=== PATIENT | male | born 1980 | race Two or more races ===

== ENCOUNTER 2020-02-07 14:25 | Outpatient (REF) | payer OTHER, SELFPAY | END 2020-02-07 14:26 | disposition home or self-care (01) | LOC: HO.LNP 14:25 | PROVIDERS: Visit Provider Internal Medicine | DX: Z20.828 Contact with and (suspected) exposure to other viral communicable diseases (principal) | CPT/HCPCS: U0003 ==

== ENCOUNTER 2020-06-11 14:31 | Outpatient (REF) | payer OTHER, SELFPAY ==
[2020-06-11 15:16] LABS: Influenza A PCR NEGATIVE (Negative); Influenza B PCR NEGATIVE (Negative); Resp Syncy Virus RNA Qual PCR NEGATIVE (Negative); SARS COV2 PCR INHOUSE NEGATIVE (Negative)
== END 2020-06-11 14:32 | disposition home or self-care (01) ==
LOC: HO.LNP 14:31
PROVIDERS: Visit Provider Internal Medicine
DX: Z20.822 Contact with and (suspected) exposure to COVID-19 (principal)
CPT/HCPCS: 0241U

== ENCOUNTER 2020-07-25 21:27 | Emergency (ER) | payer OTHER, SELFPAY ==
[2020-07-25 21:48] VITALS: BP 161/86; PULSE 64; RESP 16; TEMP 36.9; O2SAT 99; BMI 33.0
--- NOTE | 2020-07-26 00:14 | ED.GENADULT ---
HPI - General Adult General Chief complaint: General Medical Stated complaint: Left knee injury/at work Time Seen by Provider: 07/26/20 00:12 Source: patient Mode of arrival: ambulatory Limitations: no limitations History of Present Illness HPI narrative: Patient comes emergency room complaining of left knee pain. Patient states that he banged his knee at work, initially the patellar aspect hurt but it quickly resolved. Patient states the only reason that he came to the emergency room is because his boss asked him to come to get checked. Patient states that this moment, he no longer has any pain at all, has full range of motion, no swelling, no ecchymosis. Patient did not take any pain medication prior to arrival Related Data Allergies Allergy/AdvReac Type Severity Reaction Status Date / Time pistachio nut [PISTACHIO] Allergy Unknown UNKNOWN Unverified 11/23/19 17:36 oxycodone [OXYCODONE] AdvReac Intermediate NAUSEA/VOMI Unverified 11/23/19 17:36 TING Review of Systems Review of Systems: Constitutional : No Weight loss, No Fever, No Chills, No Night Sweats, No Fatigue, No Malaise ENT/Mouth : No Hearing loss, No Ear Pain, No Nasal Congestion, No Sinus Pain, No Hoarseness, No sore throat, No Rhinorrhea, No Swallowing Difficulty Eyes: No Eye Pain, No Swelling, No Redness, No Foreign Body, No Discharge, No Vision Changes Cardiovascular : No Chest Pain, No SOB, No Dyspnea on Exertion, No Orthopnea, No Edema, No Palpitations Respiratory : No Cough, No Sputum, No Wheezing, No Smoke Exposure, No Dyspnea Gastrointestinal : No Nausea, No Vomiting, No Diarrhea, No Constipation, No abdominal Pain, No Hematochezia, No Melena Genitourinary : no irregular bleeding, No Dysuria, No Urinary Frequency, No Hematuria, No Urinary Incontinence, No Urgency, No Flank Pain, No Urinary Flow Changes, No Hesitancy Musculoskeletal : Left knee pain now resolved, No Myalgias, No Joint Swelling Skin : No Skin Lesions, No rash Neuro : No Weakness, No Numbness, No Paresthesias, No Loss of Consciousness, No Dizziness, No Headache Psych : No Anxiety/Panic, No Depression, No SI/HI/AH/VH, No Social Issues, Heme/Lymph: No Bruising, No Bleeding,No Lymphadenopathy Endocrine : No Polyuria, No Polydipsia, No Temperature Intolerance Physical Exam Vital Signs: Vital Signs: Last Vital Signs Temp 98.4 F 07/25/20 21:48 Pulse 64 07/25/20 21:48 Resp 16 07/25/20 21:48 BP 161/86 H 07/25/20 21:48 Pulse Ox 99 07/25/20 21:48 Body Mass Index 33.0 Constitutional : No Weight loss, No Fever, No Chills, No Night Sweats, No Fatigue, No Malaise ENT/Mouth : No Hearing loss, No Ear Pain, No Nasal Congestion, No Sinus Pain, No Hoarseness, No sore throat, No Rhinorrhea, No Swallowing Difficulty Eyes: No Eye Pain, No Swelling, No Redness, No Foreign Body, No Discharge, No Vision Changes Cardiovascular : No Chest Pain, No SOB, No Dyspnea on Exertion, No Orthopnea, No Edema, No Palpitations Respiratory : No Cough, No Sputum, No Wheezing, No Smoke Exposure, No Dyspnea Gastrointestinal : No Nausea, No Vomiting, No Diarrhea, No Constipation, No abdominal Pain, No Hematochezia, No Melena Genitourinary : no irregular bleeding, No Dysuria, No Urinary Frequency, No Hematuria, No Urinary Incontinence, No Urgency, No Flank Pain, No Urinary Flow Changes, No Hesitancy Musculoskeletal : No joint pain, bilateral patellas within normal limits, no effusions, no ecchymosis, range of motion within normal limits, patient ambulatory with steady gait, no limping Skin : No Skin Lesions, No rash Neuro : No Weakness, No Numbness, No Paresthesias, No Loss of Consciousness, No Dizziness, No Headache Psych : No Anxiety/Panic, No Depression, No SI/HI/AH/VH, No Social Issues, Heme/Lymph: No Bruising, No Bleeding,No Lymphadenopathy Endocrine : No Polyuria, No Polydipsia, No Temperature Intolerance Course Course Course Narrative: Patient is asymptomatic now, has no signs of injury. At this time imaging is not recommended Discharge Plan Discharge Clinical Impression: Acute knee pain Patient Disposition: Home, Self-Care Instructions: Knee Pain (ED) Additional Instructions: Please follow-up with your primary care physician tomorrow. If you have any worsening or new symptoms, please return to the emergency room or call 911
== END 2020-07-26 01:00 | disposition home or self-care (01) ==
PROVIDERS: Emergency Provider Emergency Medicine; PCP Internal Medicine
DX: S89.92XA Unspecified injury of left lower leg, initial encounter (principal); M25.562 Pain in left knee; Y29.XXXA Contact with blunt object, undetermined intent, initial encounter; Y93.9 Activity, unspecified; Y92.9 Unspecified place or not applicable; Y99.0 Civilian activity done for income or pay
CPT/HCPCS: 99282

== ENCOUNTER 2020-08-26 15:50 | Emergency (ER) | payer OTHER, SELFPAY ==
--- NOTE | ~2020-08-26 | XR_ITS ---
EXAMINATION: XR ANKLE, RIGHT CLINICAL INFORMATION: Rolled ankle and felt a pop COMPARISON: None TECHNIQUE: AP, lateral, and mortise views of the right ankle. FINDINGS: There is mild lateral malleolar soft tissue swelling. The ankle mortise and subtalar joints are normal. No visible acute fracture, dislocation or subluxation seen. There is a small calcaneal heel and retrocalcaneal enthesophyte. The soft tissues are normal. XR/XR ankle RT min 3V IMPRESSION: Small calcaneal heel and retrocalcaneal enthesophyte.
[2020-08-26 15:51] VITALS: BP 143/78; PULSE 89; RESP 18; TEMP 36.8; O2SAT 99; BMI 31.8
--- NOTE | 2020-08-26 16:32 | ED.LOWEXIN ---
HPI - Extremity Injury (Lower) General Chief Complaint: Extremity Injury, Lower Stated Complaint: Ankle pain Time Seen by Provider: 08/26/20 16:32 Source: patient Mode of arrival: ambulatory History of Present Illness HPI Narrative: 40-year-old male with no significant past medical history presenting to the ED complaining right ankle pain s/p rolling injury yesterday and feeling a pop while fixing a car. Has been ambulatory since the incident. Denies numbness, tingling, weakness. complaint: ankle injury Related Data Previous Rx's Medication Instructions Recorded acetaminophen [Tylenol Extra 500 mg PO Q6H PRN #20 tab 08/26/20 Strength] ibuprofen 800 mg PO Q8H PRN #14 tab 08/26/20 Allergies Allergy/AdvReac Type Severity Reaction Status Date / Time pistachio nut [PISTACHIO] Allergy Unknown UNKNOWN Unverified 11/23/19 17:36 oxycodone [OXYCODONE] AdvReac Intermediate NAUSEA/VOMI Unverified 11/23/19 17:36 TING Review of Systems Review of Systems: Constitutional: No Fever, No Chills Musculoskeletal: + joint pain, No Myalgias, + Joint Swelling Skin: No Skin Lesions, No rash Neuro: No Weakness, No Numbness, No Paresthesias Yes all other systems are reviewed and are negative Neurologic: Denies Sensory deficit (Neuro) [facility] Past Medical History Attestation statement: The following information was validated with the patient. Social History Social History Advance Directives: No Advance Directives Information Provided: No Physical Exam Vital Signs: Vital Signs: Last Vital Signs Temp 98.2 F 08/26/20 15:51 Pulse 89 08/26/20 15:51 Resp 18 08/26/20 15:51 BP 143/78 H 08/26/20 15:51 Pulse Ox 99 08/26/20 15:51 Body Mass Index 31.8 Const: General: cooperative and healthy appearing Orientation/consciousness: patient oriented x3 Limitations: no limitations HENMT: Head: Yes normal to inspection Ears: hearing grossly normal bilaterally General nose exam: Normal external nose present Face and sinus: Yes normal facial exam Eyes: General: appearance normal, both eyes and all related structures EOM: EOMs intact bilaterally Neck: Neck: Yes normal visual inspection Resp: Effort & Inspection: normal respiratory effort Cardio: Rate: regular rate Peripheral pulses: dorsalis pedis present Skin: Rashes: no rashes Wounds: no wounds Neuro: General: patient oriented x3 Gait exam (Neuro): Normal gait present Motor exam (neuro): 5/5 motor strength present throughout Sensory Exam: No Sensory deficit (Neuro) Extrem: Other: Right ankle with mild swelling greater at medial aspect. Tender to palpation. Foot nontender. Neurovascularly intact distally. Full range of motion intact to foot/ankle Course Course Course Narrative: XR ankle RT min 3V IMPRESSION: Small calcaneal heel and retrocalcaneal enthesophyte. >> air cast applied for stability. Patient declined crutches MDM - Extremity Injury (Lower) MDM Narrative Medical decision making narrative: 40-year-old male with no significant past medical history presenting to the ED complaining right ankle pain s/p rolling injury yesterday and feeling a pop while fixing a car. On exam vital signs stable, NAD, well-appearing, physical exam as above. Concern for sprain versus fracture or dislocation Plan: X-rays Lab Data Attestation: I reviewed the patient's lab results. Discharge Plan Discharge Clinical Impression: Ankle sprain and strain Patient Disposition: Home, Self-Care Instructions: Ankle Sprain (ED) Additional Instructions: Your x-rays did not show any fracture/break of her ankle, you have an ankle sprain Wear Aircast at home as needed for stability/comfort Avoid excessive walking/weight-bearing or exercise to your ankle/foot Ice, elevate, take ibuprofen and Tylenol around the clock for the next few days to help with swelling/pain Follow-up with your primary care doctor Prescriptions: New ibuprofen 800 mg tablet 800 mg PO Q8H PRN (Reason: pain) Qty: 14 RF: 0 acetaminophen [Tylenol Extra Strength] 500 mg tablet 500 mg PO Q6H PRN (Reason: pain or fever) Qty: 20 RF: 0 Referrals: Herve Hernandez MD [Primary Care Provider] - 1 week
== END 2020-08-26 16:47 | disposition home or self-care (01) ==
PROVIDERS: Emergency Provider Emergency Medicine; PCP Internal Medicine
DX: S93.401A Sprain of unspecified ligament of right ankle, initial encounter (principal); S96.911A Strain of unspecified muscle and tendon at ankle and foot level, right foot, initial encounter; X50.1XXA Overexertion from prolonged static or awkward postures, initial encounter; Y93.89 Activity, other specified; Y92.9 Unspecified place or not applicable; Y99.9 Unspecified external cause status
CPT/HCPCS: 73610; 99283; 99284

== ENCOUNTER 2020-10-09 12:21 | Outpatient (REF) | payer OTHER, SELFPAY | END 2020-10-09 12:22 | disposition home or self-care (01) | LOC: HO.LAB 12:21 | PROVIDERS: PCP Internal Medicine; Visit Provider Internal Medicine | DX: Z20.822 Contact with and (suspected) exposure to COVID-19 (principal) | CPT/HCPCS: C9803; U0003; U0005 ==

== ENCOUNTER 2020-11-22 09:29 | Outpatient (REF) | payer OTHER, SELFPAY | END 2020-11-22 09:30 | disposition home or self-care (01) | LOC: HO.LAB 09:29 | PROVIDERS: Visit Provider Internal Medicine | DX: Z20.822 Contact with and (suspected) exposure to COVID-19 (principal) | CPT/HCPCS: C9803; U0003; U0005 ==

== ENCOUNTER 2020-11-28 21:34 | Emergency (ER) | payer OTHER, SELFPAY ==
[2020-11-28 21:43] VITALS: BP 114/70; BP 167/87; PULSE 68; PULSE 70; RESP 18; TEMP 36.9; O2SAT 98; O2SAT 99; BMI 31.8
--- NOTE | 2020-11-28 22:27 | ECG_ITS ---
Test Reason : CHEST PAIN Blood Pressure : / mmHG Vent. Rate : 061 BPM Atrial Rate : 061 BPM P-R Int : 158 ms QRS Dur : 100 ms QT Int : 428 ms P-R-T Axes : 036 042 027 degrees QTc Int : 430 ms Normal sinus rhythm Minimal voltage criteria for LVH, may be normal variant Borderline ECG When compared with ECG of 11-JAN-2013 10:45, No significant change was found Referred By: Generic ED Physician Electronically Signed By:JEIMY CHAPMAN
[2020-11-28 22:44] VITALS: BP 148/82; PULSE 65; RESP 12; O2SAT 98
--- NOTE | 2020-11-28 23:49 | ED.CHESTPAIN ---
HPI - Chest Pain General Chief Complaint: Chest Pain Stated Complaint: rt chest pain Time Seen by Provider: 11/28/20 23:49 Source: patient Mode of arrival: ambulatory Limitations: no limitations History of Present Illness HPI narrative: chest pain with shortness of breath. Pain started today at 6:30pm patient was getting ready to go to work. No prior history of chest pain. patient states that he has stress. Denies suicidal ideation MD complaint: chest pain Onset (ago): hour(s) Timing of current episode: constant Onset: during rest Pain location: left chest Severity: mild Quality: other (cramping) Exacerbating factors: nothing Risk Factors Coronary artery disease risk factors: none Related Data Previous Rx's Medication Instructions Recorded acetaminophen 500 mg tablet 500 mg PO Q6H PRN #20 tab 08/26/20 (Tylenol Extra Strength) ibuprofen 800 mg tablet 800 mg PO Q8H PRN #14 tab 08/26/20 Allergies Allergy/AdvReac Type Severity Reaction Status Date / Time pistachio nut [PISTACHIO] Allergy Unknown UNKNOWN Unverified 11/23/19 17:36 oxycodone [OXYCODONE] AdvReac Intermediate NAUSEA/VOMI Unverified 11/23/19 17:36 TING Review of Systems Constitutional: Constitutional: Reports no additional constitutional complaints Eyes: Eyes: Reports no additional eye complaints ENT: Denies dizziness Cardiovascular: Cardiovascular: Reports no additional cardiovascular complaints Respiratory: Respiratory: Reports as per HPI Gastrointestinal: Gastrointestinal: Reports no additional gastrointestinal complaints Musculoskeletal: Musculoskeletal: Reports no additional musculoskeletal complaints Integumentary/Breasts: Skin/Breast: Denies rash Neurologic: Reports system reviewed and no additional complaints, except as documented, Denies dizziness and Denies Sensory deficit (Neuro) Psychiatric: Psychiatric: Denies anxiety [facility] Social History Social History Advance Directives: No Advance Directives Information Provided: Yes Physical Exam Vital Signs: Vital Signs: Last Vital Signs Temp 98.4 F 11/28/20 21:43 Pulse 60 11/29/20 00:01 Resp 12 11/29/20 00:01 BP 135/81 11/29/20 00:01 Pulse Ox 98 11/29/20 00:01 Body Mass Index 31.8 Const: General: healthy appearing Nutritional Appearance: average body habitus Orientation/consciousness: oriented to person and patient oriented x3 Limitations: no limitations HENMT: Head: Yes normal to inspection Ears: external ears normal General nose exam: Normal external nose present Mouth: Normal oral and palatal mucosa present and oropharynx normal Throat: Yes posterior oropharynx normal Eyes: General: appearance normal, both eyes and all related structures Neck: Other: supple Neck: Yes normal visual inspection Chest: Chest palpation & inspection: normal inspection of the chest Resp: Auscultation: clear to auscultation bilaterally Cardio: Jugular venous distension: no JVD Rate: regular rate Rhythm: regular rhythm Heart sounds: S1 normal heart sound present and S2 normal heart sound present GI: Inspection: Yes normal to inspection Palpation (GI): Soft to palpation, nontender and No hepatosplenomegaly present Auscultation: normal bowel sounds : General: Yes no CVA tenderness Back/Spine/Pelvis: Back: no CVA tenderness Skin: General skin exam: no rashes or lesions noted Neuro: General: oriented to person and patient oriented x3 Cranial nerves: Yes CN's II-XII intact bilaterally Motor exam (neuro): 5/5 motor strength present throughout Sensory Exam: No Sensory deficit (Neuro) Extrem: General: Yes normal to inspection Psych: Appearance: grossly normal Course Reevaluation(s) Reevaluation #1: labs normal, history sounds more like anxiety then cardiac chest pain will dc home Time: 01:12 MDM - Chest Pain Lab Data Result diagrams: 11/29/20 00:11 11/29/20 00:11 Labs: Lab Results 11/29/20 11/29/20 11/29/20 Range/Units 00:11 00:11 00:11 WBC 7.7 (4.8-10.8) X10*3/uL RBC 5.01 (4.60-5.80) X10*6/uL Hgb 14.0 (14.0-18.0) g/dl Hct 40.3 L (42-52) % MCV 80.4 (80-98) fL MCH 27.9 (27.0-33.0) pg MCHC 34.7 (31.0-36.0) g/dl RDW 13.5 (11.0-16.0) % Plt Count 218 (160-400) X10*3/uL MPV 9.6 (9.4-12.4) fL Immature Gran % (Auto) 0.3 (0.0-0.4) % Neut % (Auto) 56.3 (45-73) % Lymph % (Auto) 35.3 (20-40) % [place] % (Auto) 6.2 (2-11) % Eos % (Auto) 1.6 (0-4) % Baso % (Auto) 0.3 (0-2) % Lymph # (Auto) 2.7 (1.2-4.9) X10*3/uL [place] # (Auto) 0.5 (0.1-1.2) X10*3/uL Eos # (Auto) 0.1 (0.0-0.4) X10*3/uL Baso # (Auto) 0.0 (0.0-0.2) X10*3/uL Abs Immat Gran (auto) 0.02 (0.00-0.03) X10*3/uL Absolute Neuts (auto) 4.4 (2.0-8.3) X10*3/uL Absolute Nucleated RBC 0.000 (0.0-0.012) X10*3/uL Nucleated RBC % (auto) 0.0 (0.0-0.2) /100WBC Sodium 139 (135-145) mmol/L Potassium 3.7 (3.3-5.1) mmol/L Chloride 108 (96-108) mmol/L Carbon Dioxide 23 (22-29) mmol/L Anion Gap 12 (12-20) BUN 8 L (9-16) mg/dL Creatinine 0.71 (0.5-1.4) mg/dL Estim Creat Clear Calc 125.8 Estimated GFR > 60 Random Glucose 113 (60-115) mg/dL Calcium 8.9 (8.4-10.2) mg/dL Troponin I High Sens 4.4 (<3.5-35.0) ng/L ECG Data ECG #1: Attestation: I personally reviewed and interpreted this ECG as follows: Interpretation: sinus rhythm rate of 60, biphasic ts in V1 and V2, no other twave changes Discharge Plan Discharge Clinical Impression: Atypical chest pain Patient Disposition: Home, Self-Care Instructions: Noncardiac Chest Pain (ED) Prescriptions: No Action ibuprofen 800 mg tablet 800 mg PO Q8H PRN (Reason: pain) Qty: 14 RF: 0 acetaminophen [Tylenol Extra Strength] 500 mg tablet 500 mg PO Q6H PRN (Reason: pain or fever) Qty: 20 RF: 0 Referrals: Physician,Unknown [Primary Care Provider] - 1 week
[2020-11-29 00:01] VITALS: BP 135/81; PULSE 60; RESP 12; O2SAT 98
--- NOTE | 2020-11-29 00:13 | PC.NURSE ---
Labs drawn. PT's VSS. PT resting in bed. No complaints of chest pain and respirations even and unlabored.
[2020-11-29 00:21] LABS: Basophils Percent Auto 0.3 % (0-2); Eosinophils Absolute Auto 0.1 X10*3/uL (0.0-0.4); Eosinophils Percent Auto 1.6 % (0-4); Hematocrit 40.3 % (42-52); Imm Gran Abs Auto 0.02 X10*3/uL (0.00-0.03); Imm Gran Pct Auto 0.3 % (0.0-0.4); Lymphocytes Absolute Auto 2.7 X10*3/uL (1.2-4.9); Lymphocytes Percent Auto 35.3 % (20-40); MANUAL DIFF FLAG NO; Mean Corpuscular HGB Conc 34.7 g/dl (31.0-36.0); Mean Corpuscular Hemoglobin 27.9 pg (27.0-33.0); Mean Corpuscular Volume 80.4 fL (80-98); Mean Platelet Volume 9.6 fL (9.4-12.4); Monocytes Absolute Auto 0.5 X10*3/uL (0.1-1.2); Monocytes Percent Auto 6.2 % (2-11); Neutrophils Absolute Auto 4.4 X10*3/uL (2.0-8.3); Neutrophils Percent Auto 56.3 % (45-73); Platelet Count 218 X10*3/uL (160-400); Red Blood Count 5.01 X10*6/uL (4.60-5.80); Red Cell Distribution Width 13.5 % (11.0-16.0); White Blood Count 7.7 X10*3/uL (4.8-10.8)
[2020-11-29 00:45] LABS: Anion Gap 12 (12-20); Blood Urea Nitrogen 8 mg/dL (9-16); Calcium 8.9 mg/dL (8.4-10.2); Carbon Dioxide 23 mmol/L (22-29); Chloride 108 mmol/L (96-108); Creatinine Clr Calc Pharmacy 125.8; Estimated Glomerular Filt Rate > 60; Glucose Random 113 mg/dL (60-115); Potassium 3.7 mmol/L (3.3-5.1); Sodium 139 mmol/L (135-145)
[2020-11-29 00:50] LABS: Troponin-I High Sensitivity 4.4 ng/L (<3.5-35.0)
== END 2020-11-29 01:41 | disposition home or self-care (01) ==
PROVIDERS: Emergency Provider Emergency Medicine
DX: R07.9 Chest pain, unspecified (principal); F43.9 Reaction to severe stress, unspecified; Z79.899 Other long term (current) drug therapy
CPT/HCPCS: 36415; 80048; 84484; 85025; 93005; 99284

== ENCOUNTER 2021-01-16 15:03 | Outpatient (REF) | payer OTHER, SELFPAY ==
[2021-01-16 15:34] LABS: COVID-19 Test Negative (Negative)
== END 2021-01-16 15:04 | disposition home or self-care (01) ==
LOC: HO.LAB 15:03
PROVIDERS: PCP Internal Medicine; Visit Provider Internal Medicine
DX: Z20.822 Contact with and (suspected) exposure to COVID-19 (principal)
CPT/HCPCS: 36415; 87635; C9803

== ENCOUNTER 2021-03-03 10:28 | Emergency (ER) | payer OTHER, SELFPAY ==
[2021-03-03 11:20] VITALS: BP 142/81; PULSE 68; RESP 18; TEMP 36.6; O2SAT 99; BMI 32.1
== END 2021-03-03 14:42 | disposition left against medical advice (07) ==
PROVIDERS: Emergency Provider Emergency Medicine; PCP Internal Medicine
DX: R06.02 Shortness of breath (principal); R05.9 Cough, unspecified
CPT/HCPCS: 99281; 99282

== ENCOUNTER 2021-03-04 12:29 | Outpatient (REF) | payer OTHER, SELFPAY ==
[2021-03-05 07:45] LABS: COVID-19 Test Negative (Negative)
== END 2021-03-04 12:30 | disposition home or self-care (01) ==
LOC: HO.LAB 12:29
PROVIDERS: Visit Provider Internal Medicine
DX: Z20.822 Contact with and (suspected) exposure to COVID-19 (principal)
CPT/HCPCS: 36415; 87635; C9803

== ENCOUNTER 2021-03-05 23:11 | Emergency (ER) | payer OTHER, SELFPAY ==
[2021-03-05 23:45] VITALS: BP 156/89; PULSE 78; RESP 16; TEMP 36.8; O2SAT 99; BMI 31.8
[2021-03-06 01:23] LABS: COVID-19 Test Negative (Negative)
--- NOTE | 2021-03-06 03:51 | ED.GENADULT ---
HPI - General Adult General Chief complaint: Upper Respiratory Symptoms Stated complaint: COVID Symptoms Time Seen by Provider: 03/06/21 03:51 Source: patient Limitations: no limitations History of Present Illness HPI narrative: This is a 40-year-old male whose daughter last week and had coded, who complains of mild headache, and throat discomfort. He has had a mild cough. He has also had some dry heaving yesterday as well as 3 episodes of diarrhea. Denies any fever. He had a negative COVID test here 2 days ago. He denies abdominal pain, has had some muscular discomfort in his legs. He denies shortness of breath. Related Data Previous Rx's Medication Instructions Recorded acetaminophen 500 mg tablet 500 mg PO Q6H PRN #20 tab 08/26/20 (Tylenol Extra Strength) ibuprofen 800 mg tablet 800 mg PO Q8H PRN #14 tab 08/26/20 Allergies Allergy/AdvReac Type Severity Reaction Status Date / Time pistachio nut [PISTACHIO] Allergy Unknown UNKNOWN Verified 03/05/21 23:47 oxycodone [OXYCODONE] AdvReac Intermediate NAUSEA/VOMI Verified 03/05/21 23:47 TING Review of Systems Constitutional: Constitutional: Reports as per HPI ENT: Reports as per HPI Cardiovascular: Cardiovascular: Denies dyspnea Respiratory: Respiratory: Reports as per HPI, Reports cough and Denies dyspnea Gastrointestinal: Gastrointestinal: Reports diarrhea, Reports nausea and Reports vomiting Neurologic: Denies Sensory deficit (Neuro) [facility] Past Medical History Medical History (Updated 03/06/21 @ 03:55 by Jere Estrada MD) No pertinent past medical history Social History Social History Advance Directives: No Advance Directives Information Provided: Yes Physical Exam Vital Signs: Vital Signs: Last Vital Signs Temp 98.3 F 03/05/21 23:45 Pulse 78 03/05/21 23:45 Resp 16 03/05/21 23:45 BP 156/89 H 03/05/21 23:45 Pulse Ox 99 03/05/21 23:45 BMI result Body Mass Index 31.8 Const: General: cooperative, no acute distress and alert Orientation/consciousness: patient oriented x3 HENMT: Head: Yes normal to inspection Eyes: General: appearance normal, both eyes and all related structures Eyelids: Yes eyelids normal Conjunctivae: conjunctivae normal Pupils: Equal, round and reactive pupils present Neck: Neck: Yes normal visual inspection and Yes supple Chest: Chest palpation & inspection: normal inspection of the chest Resp: Effort & Inspection: normal respiratory effort Auscultation: clear to auscultation bilaterally Cardio: Rate: regular rate Rhythm: regular rhythm Heart sounds: S1 normal heart sound present, S2 normal heart sound present, no gallops, no murmurs and no rubs GI: Palpation (GI): Soft to palpation, nontender and Other GI palpation findings present (Non-distended) Auscultation: normal bowel sounds Skin: General skin exam: no rashes or lesions noted Neuro: General: patient oriented x3, no focal motor deficits and CN's II-XI intact bilaterally Cranial nerves: Yes Equal, round and reactive pupils present Cognition (Neuro): normal cognition Motor exam (neuro): 5/5 motor strength present throughout Sensory Exam: No Sensory deficit (Neuro) Extrem: General: Yes normal to inspection and Yes no pedal edema Psych: Appearance: grossly normal Affect: normal affect Medical Decision Making MDM Narrative Medical decision making narrative: Patient with mild URI symptoms as well as some GI symptoms and a mild headache for few days. Patient did have recent COVID exposure. Patient had negative COVID test 2 days ago and again tonight was negative. Patient appears well clinically, has a normal exam, normal-appearing throat. Lab Data Labs: Lab Results 03/06/21 Range/Units 00:54 COVID-19 ([facility]) Negative (Negative) COVID-19 Clin Com See Note Discharge Plan Discharge Clinical Impression: Upper respiratory infection Patient Disposition: Home, Self-Care Instructions: Viral Syndrome (ED) Additional Instructions: Drink plenty of fluids. Use acetaminophen for pain or fever. Return for any new or worsened symptoms such as high fever, shortness of breath, increased cough Prescriptions: No Action ibuprofen 800 mg tablet 800 mg PO Q8H PRN (Reason: pain) Qty: 14 RF: 0 acetaminophen [Tylenol Extra Strength] 500 mg tablet 500 mg PO Q6H PRN (Reason: pain or fever) Qty: 20 RF: 0
== END 2021-03-06 04:32 | disposition home or self-care (01) ==
PROVIDERS: Emergency Provider Emergency Medicine
DX: J06.9 Acute upper respiratory infection, unspecified (principal); Z20.822 Contact with and (suspected) exposure to COVID-19; Z79.899 Other long term (current) drug therapy
CPT/HCPCS: 36415; 87635; 99283

== ENCOUNTER 2021-03-19 14:13 | Emergency (ER) | payer OTHER, SELFPAY ==
[2021-03-19 14:24] VITALS: BP 164/96; PULSE 112; RESP 20; TEMP 38.3; O2SAT 98; BMI 31.8
[2021-03-19 16:02] LABS: COVID-19 Test Positive (Negative); IDNOW Serial# 9DD0AD1C
--- NOTE | 2021-03-19 17:25 | ED_ITS ---
HPI - General Adult General Chief complaint: Upper Respiratory Symptoms Stated complaint: headache fever diarrhea Source: patient Mode of arrival: ambulatory Limitations: no limitations History of Present Illness HPI narrative: 40-year-old male presents to ED with body aches, chills, and fever. Patient states he was exposed to a co-worker positive for COVID. Patient states he is not vaccinated against COVID. Patient denies any chest pain or shortness of breath. Related Data Previous Rx's Medication Instructions Recorded acetaminophen 500 mg tablet 500 mg PO Q6H PRN #20 tab 08/26/20 (Tylenol Extra Strength) ibuprofen 800 mg tablet 800 mg PO Q8H PRN #14 tab 08/26/20 Allergies Allergy/AdvReac Type Severity Reaction Status Date / Time pistachio nut [PISTACHIO] Allergy Unknown UNKNOWN Verified 03/05/21 23:47 oxycodone [OXYCODONE] AdvReac Intermediate NAUSEA/VOMI Verified 03/05/21 23:47 TING Review of Systems Review of Systems: Headache, fever, diarrhea, chills, COVID exposure Yes all other systems are reviewed and are negative PENDING SALE TO [facility] Past Medical History Medical History (Updated 03/19/21 @ 17:39 by VELMA Eddy) No pertinent past medical history Social History Social History Advance Directives: No Advance Directives Information Provided: No Physical Exam Vital Signs: Vital Signs: Last Vital Signs Temp 100.9 F H 03/19/21 14:24 Pulse 112 H 03/19/21 14:24 Resp 20 03/19/21 14:24 BP 164/96 H 03/19/21 14:24 Pulse Ox 98 03/19/21 14:24 BMI result Body Mass Index 31.8 Const: General: cooperative, healthy appearing, comfortable, no acute distress, well developed, alert, awake and Physically active Orientation/consciousness: patient oriented x3 HENMT: Head: Yes normal to inspection, Yes No palpable skull fracture present, Yes normocephalic and Yes atraumatic Ears: hearing grossly normal bilaterally, external ears normal, TM's normal bilaterally, EAC's normal and mastoids normal Throat: Yes posterior oropharynx normal, Yes tonsils normal and Yes uvula midline Eyes: General: appearance normal, both eyes and all related structures Neck: Neck: Yes normal visual inspection, Yes full ROM, Yes no lymphadenopathy, Yes no meningeal signs, Yes trachea midline, Yes supple, No anterior neck swelling and No tender Chest: Chest palpation & inspection: normal inspection of the chest and normal palpation of entire chest wall Resp: Effort & Inspection: normal respiratory effort and able to speak in complete sentences Auscultation: clear to auscultation bilaterally Cardio: Jugular venous distension: no JVD Heart sounds: S1 normal heart sound present and S2 normal heart sound present GI: Inspection: Yes normal to inspection and No abdominal wall ecchymosis Palpation (GI): Soft to palpation, not firm, nontender, no guarding and not rigid : General: No CVA tenderness and Yes no CVA tenderness Back/Spine/Pelvis: Back: no CVA tenderness, No CVA tenderness and No back tenderness Skin: General skin exam: no rashes or lesions noted and elasticity normal Neuro: General: patient oriented x3, gait normal, no meningeal signs and CN's II-XI intact bilaterally Cranial nerves: Yes CN's II-XII intact bilaterally Extrem: General: Yes normal to inspection and Yes full ROM Psych: Appearance: grossly normal, well kempt and not disheveled Course Course Course Narrative: COVID Test ordered Reevaluation(s) Reevaluation #1: Patient positive for COVID Time: 17:34 Medical Decision Making [facility] Narrative Medical decision making narrative: Covid Lab Data Labs: Lab Results 03/19/21 Range/Units 15:45 COVID-19 ([facility]) Positive A (Negative) COVID-19 Clin Com See Note Discharge Plan Discharge Clinical Impression: COVID-19 Patient Disposition: Home, Self-Care Instructions: COVID-19 (Coronavirus Disease 2019) (ED) Additional Instructions: You came back positive for COVID. Recommend self-quarantine. Return to the ED for any chest pain, shortness of breath, weakness, dizziness, or any other concerning symptoms. Prescriptions: No Action ibuprofen 800 mg tablet 800 mg PO Q8H PRN (Reason: pain) Qty: 14 RF: 0 acetaminophen [Tylenol Extra Strength] 500 mg tablet 500 mg PO Q6H PRN (Reason: pain or fever) Qty: 20 RF: 0 Stand Alone Forms: Work/School Release Interventions: ED Discharge Assessment Last Done: 03/19/21 18:02 Discharge Date/Time: 03/19/21 18:06 Print Language: Sinhala
== END 2021-03-19 18:06 | disposition home or self-care (01) ==
PROVIDERS: Emergency Provider Emergency Medicine; PCP Internal Medicine
DX: U07.1 COVID-19 (principal); R50.9 Fever, unspecified
CPT/HCPCS: 87635; 99283

== ENCOUNTER 2021-11-04 04:01 | Emergency (ER) | payer MEDICAID, SELFPAY ==
[2021-11-04 04:13] VITALS: BP 164/98; PULSE 82; RESP 18; TEMP 36.3; O2SAT 99; BMI 32.0
--- NOTE | 2021-11-04 04:52 | ED.DENTAL ---
HPI - Dental/Oral General Chief complaint: Dental/Oral Stated complaint: tooth pain Time Seen by Provider: 11/04/21 04:47 Source: patient Limitations: no limitations History of Present Illness HPI Narrative: This is a 41-year-old male who woke up with pain in his right upper mouth, which he believes is from a tooth. The patient denies any tooth injury or fracture. He has had a tooth removed in that area previously but not recently. He denies any fever, trouble swallowing, headache, sore throat. He does have a dentist to follow up with. He has not tried taking any medicine. Related Data Previous Rx's Medication Instructions Recorded acetaminophen 500 mg tablet 500 mg PO Q6H PRN pain or fever 08/26/20 (Tylenol Extra Strength) #20 tabs ibuprofen 800 mg tablet 800 mg PO Q8H PRN pain #14 tabs 08/26/20 amoxicillin 500 mg capsule 500 mg PO Q8H #20 caps 11/04/21 ibuprofen 600 mg tablet 600 mg PO Q6H PRN pain #30 tabs 11/04/21 tramadol 50 mg tablet 50 - 100 mg PO Q6H PRN pain #12 11/04/21 tabs Allergies Allergy/AdvReac Type Severity Reaction Status Date / Time pistachio nut [PISTACHIO] Allergy Unknown UNKNOWN Verified 03/05/21 23:47 oxycodone [OXYCODONE] AdvReac Intermediate NAUSEA/VOMI Verified 03/05/21 23:47 TING Review of Systems Constitutional: Constitutional: Reports as per HPI ENT: Reports as per HPI Cardiovascular: Cardiovascular: Reports no additional cardiovascular complaints Respiratory: Respiratory: Reports no additional respiratory complaints Gastrointestinal: Gastrointestinal: Reports no additional gastrointestinal complaints [facility] Past Medical History Medical History (Updated 11/04/21 @ 04:52 by Jere Estrada MD) No pertinent past medical history Social History Social History Advance Directives: No Physical Exam Vital Signs: Vital Signs: Last Vital Signs Temp 97.3 F 11/04/21 04:13 Pulse 82 11/04/21 04:13 Resp 18 11/04/21 04:13 BP 164/98 H 11/04/21 04:13 Pulse Ox 99 11/04/21 04:13 O2 Del Method 11/04/21 04:13 BMI result Body Mass Index 32.0 Const: Other: PERRLA Conj [place] Mucous membranes moist Right more posterior bicuspid, axillary, with tenderness but no evident fracture or decay, no gum swelling or erythema. Throat clear Neck supple Lungs CTA Heart RRR no murmurs rubs or gallops Abs soft, non tender, non distended Extremities no pitting edema Neuro alert and oriented x 3, non focal Course Course Course Narrative: Patient with acute dental pain, will start antibiotics and pain medicine the patient can follow-up with his dentist Discharge Plan Discharge Clinical Impression: Toothache Instructions: Toothache (ED) Additional Instructions: Follow-up with your dentist, call later this morning. Take the antibiotics and pain medicine as prescribed Prescriptions: New amoxicillin 500 mg capsule 500 mg PO Q8H Qty: 20 0RF tramadol 50 mg tablet 50 - 100 mg PO Q6H PRN (Reason: pain) Qty: 12 0RF ibuprofen 600 mg tablet 600 mg PO Q6H PRN (Reason: pain) Qty: 30 0RF No Action ibuprofen 800 mg tablet 800 mg PO Q8H PRN (Reason: pain) Qty: 14 0RF acetaminophen [Tylenol Extra Strength] 500 mg tablet 500 mg PO Q6H PRN (Reason: pain or fever) Qty: 20 0RF
[2021-11-04] MEDS: Amoxicillin 500 MG CAPSULE PO (05:10)
[2021-11-04] MEDS: Ibuprofen 800 MG TABLET PO (05:10)
[2021-11-04] MEDS: traMADoL HCL 50 MG TABLET 100 MG PO (05:10)
== END 2021-11-04 05:13 | disposition home or self-care (01) ==
PROVIDERS: Emergency Provider Emergency Medicine; PCP Internal Medicine
DX: K08.89 Other specified disorders of teeth and supporting structures (principal)
CPT/HCPCS: 99283

== ENCOUNTER 2021-11-28 16:15 | Emergency (ER) | payer MEDICAID, SELFPAY ==
[2021-11-28 16:17] VITALS: BP 177/79; PULSE 83; RESP 18; TEMP 36.7; O2SAT 100; BMI 32.0
[2021-11-28 16:40] LABS: Strep A Nucleic Acid Negative (Negative)
[2021-11-28 16:51] LABS: COVID-19 Test Negative (Negative); IDNOW Serial# 55D5AD1C; IDNOW Serial# 9DB6401D; Influenza A Negative (Negative); Influenza B2 Negative (Negative)
== END 2021-11-28 20:39 | disposition left against medical advice (07) ==
PROVIDERS: Emergency Provider Emergency Medicine; PCP Internal Medicine
DX: J02.9 Acute pharyngitis, unspecified (principal); Z20.822 Contact with and (suspected) exposure to COVID-19
CPT/HCPCS: 87502; 87635; 87651; 99281; 99283

== ENCOUNTER 2021-11-29 08:20 | Emergency (ER) | payer MEDICAID, SELFPAY | END 2021-11-29 08:38 | disposition left against medical advice (07) | PROVIDERS: Emergency Provider Emergency Medicine; PCP Internal Medicine | DX: Z20.822 Contact with and (suspected) exposure to COVID-19 (principal) ==

== ENCOUNTER 2022-01-12 23:57 | Emergency (ER) | payer MEDICAID, SELFPAY ==
[2022-01-13 00:12] VITALS: BP 122/81; PULSE 73; RESP 16; TEMP 36.6; O2SAT 97; BMI 28.9
[2022-01-13 00:35] LABS: Basophils Percent Auto 0.8 % (0-2); Eosinophils Absolute Auto 0.2 X10*3/uL (0.0-0.4); Eosinophils Percent Auto 4.2 % (0-4); Hematocrit 42.3 % (42.0-52.0); Hemoglobin 14.8 g/dl (14.0-18.0); Imm Gran Abs Auto 0.02 X10*3/uL (0.00-0.03); Imm Gran Pct Auto 0.4 % (0.0-0.4); Lymphocytes Absolute Auto 1.7 X10*3/uL (1.2-4.9); Lymphocytes Percent Auto 32.4 % (20-40); MANUAL DIFF FLAG NO; Mean Corpuscular Hemoglobin 27.5 pg (27.0-33.0); Mean Corpuscular Volume 78.6 fL (80.0-98.0); Mean Platelet Volume 10.6 fL (9.4-12.4); Monocytes Absolute Auto 0.5 X10*3/uL (0.1-1.2); Monocytes Percent Auto 8.9 % (2-11); Neutrophils Absolute Auto 2.8 x10*3/uL (2.0-8.3); Neutrophils Percent Auto 53.3 % (45-73); Platelet Count 231 X10*3/uL (160-400); Red Blood Count 5.38 X10*6/uL (4.60-5.80); Red Cell Distribution Width 12.9 % (11.0-16.0); White Blood Count 5.3 X10*3/uL (4.8-10.8)
[2022-01-13 00:51] LABS: Appearance Urine Clear; Color Urine Yellow; Glucose Urine UA >=1000 mg/dL (Negative); Leukocyte Esterase Urine Negative (Negative); Nitrite Urine Negative (Negative); PH 5.5 (5.0-9.0); Specific Gravity - Urine >= 1.030 (1.005-1.025); UMIC TRIGGER UACC YES; Urine Blood Negative (Negative); Urine Ketones 15 mg/dL (Negative); Urine Protein Negative (Neg-Trace)
[2022-01-13 00:58] LABS: Anion Gap 18 (12-20); Blood Urea Nitrogen 6 mg/dL (9-16); Calcium 9.8 mg/dL (8.4-10.2); Carbon Dioxide 23 mmol/L (22-29); Chloride 98 mmol/L (96-108); Creatinine Clr Calc Pharmacy 82.1; Estimated Glomerular Filt Rate > 60; Glucose Random 611 mg/dL (60-115); Potassium 3.8 mmol/L (3.3-5.1); Sodium 135 mmol/L (135-145)
[2022-01-13 01:00] LABS: Bacteria Urine None Seen (None Seen); Hyaline Casts Urine 0-2 /LPF (0-2); RBC Urine 0-2 /HPF (0-2); Squamous Epithelial Cell Urine 0-2 /HPF (0-2); WBC Urine 0-5 /HPF (0-5)
[2022-01-13 01:21] LABS: Influenza A PCR NEGATIVE (Negative); Influenza B PCR NEGATIVE (Negative); Resp Syncy Virus RNA Qual PCR NEGATIVE (Negative); SARS COV2 PCR INHOUSE NEGATIVE (Negative)
[2022-01-13] MEDS: 0.9 % Sodium Chloride 2,000 ML 999 ML IV (01:21)
[2022-01-13 01:22] VITALS: BP 135/80; PULSE 82; RESP 17; TEMP 36.7; O2SAT 99
--- NOTE | 2022-01-13 01:23 | PC.NURSE ---
Patient presents endorsing weight loss, abdominal discomfort, polyuria, nausea, and blurry visionn x 2 weeks. BG = >600, patient denies known history of diabetes. Patient is alert, oriented x4. Hx htn.
--- NOTE | 2022-01-13 01:23 | ED.GENADULT ---
HPI - General Adult General Chief complaint: General Medical Stated complaint: nausea, general fatigue Time Seen by Provider: 01/13/22 01:09 Source: patient Mode of arrival: ambulatory History of Present Illness HPI narrative: 41-year-old male, everyday smoker and occasional alcohol drinker presents with couple weeks of body aches, bone pain, weight loss, fatigue, blurry vision as well as lower abdominal pain, polyuria, polydipsia and feeling nauseous and is though he will pass out. Related Data Previous Rx's Medication Instructions Recorded acetaminophen 500 mg tablet 500 mg PO Q6H PRN pain or fever 08/26/20 (Tylenol Extra Strength) #20 tabs ibuprofen 800 mg tablet 800 mg PO Q8H PRN pain #14 tabs 08/26/20 amoxicillin 500 mg capsule 500 mg PO Q8H #20 caps 11/04/21 ibuprofen 600 mg tablet 600 mg PO Q6H PRN pain #30 tabs 11/04/21 tramadol 50 mg tablet 50 - 100 mg PO Q6H PRN pain #12 11/04/21 tabs metformin 500 mg tablet 500 mg PO BIDWMEAL #60 tabs 01/13/22 Allergies Allergy/AdvReac Type Severity Reaction Status Date / Time pistachio nut [PISTACHIO] Allergy Unknown UNKNOWN Verified 03/05/21 23:47 oxycodone [OXYCODONE] AdvReac Intermediate NAUSEA/VOMI Verified 03/05/21 23:47 TING Review of Systems Review of Systems: Pertinent positives and negatives as stated in HPI 10 point review of systems is otherwise negative. PMFSH Past Medical History Source: nursing notes reviewed Medical History No pertinent past medical history Physical Exam ED Vital Signs: Vital Signs - 24 hr 01/13/22 00:12 01/13/22 01:22 Temperature 97.8 F 98.1 F Pulse Rate 73 82 Respiratory Rate 16 17 Blood Pressure 122/81 135/80 Pulse Oximetry 97 99 Oxygen Delivery Method Room Air Room Air BMI result Body Mass Index 28.9 VITAL SIGNS: Reviewed. GENERAL: Well developed, well nourished, in no acute distress. HEAD: Normocephalic/atraumatic EYES: PERRLA, EOMI EARS: Ext canals without abnormality OROPHARYNX: no oral lesions noted, posterior pharynx clear, dry mucosa NECK: Supple, no adenopathy LUNGS: Normal breath sounds. No adventitious sounds or accessory muscle use. SpO2<97> CARDIOVASCULAR: Regular rate and rhythm without noted murmurs ABDOMEN: Soft, mild abdominal pain to left lower quadrant, non-distended with bowel sounds. MUSCULOSKELETAL: No tenderness, deformities, or effusions noted on gross inspection. EXTREMITIES: No cyanosis, clubbing or edema. SKIN: Inspection of the skin reveals no rashes NEUROLOGIC: Alert and oriented x 4. Strength and sensation to light touch were grossly intact x 4. Course Course Course Narrative: 41-year-old male with history and clinical presentation consistent with new onset diabetes without evidence of DKA or HHS but obvious dehydration. Patient will receive a total of 4 L of IV fluids as well as 5 units subQ lispro with re-evaluation of the BMP and glucose prior to discharge. Patient will be discharged with metformin as well as information regarding his new diagnosis which he was informed of completely. He has a follow-up of via with his primary care provider on . Signed out to Dr Loza Medications Administered Generic Name Dose Route Start Last Admin Trade Name Freq PRN Reason Stop Dose Admin Sodium Chloride 2,000 mls @ 999 mls/hr 01/13/22 01:15 01/13/22 01:21 Ns IV 01/13/22 03:15 999 mls/hr .Q2H1M [facility] Administration Medical Decision Making Lab Data Result diagrams: 01/13/22 00:30 01/13/22 00:30 Labs: Lab Results 01/13/22 01/13/22 01/13/22 Range/Units 00:30 00:30 00:35 WBC 5.3 (4.8-10.8) X10*3/uL RBC 5.38 (4.60-5.80) X10*6/uL Hgb 14.8 (14.0-18.0) g/dl Hct 42.3 (42.0-52.0) % MCV 78.6 L (80.0-98.0) fL MCH 27.5 (27.0-33.0) pg MCHC 35.0 (31.0-36.0) g/dl RDW 12.9 (11.0-16.0) % Plt Count 231 (160-400) X10*3/uL MPV 10.6 (9.4-12.4) fL Immature Gran % (Auto) 0.4 (0.0-0.4) % Neut % (Auto) 53.3 (45-73) % Lymph % (Auto) 32.4 (20-40) % [place] % (Auto) 8.9 (2-11) % Eos % (Auto) 4.2 H (0-4) % Baso % (Auto) 0.8 (0-2) % Lymph # (Auto) 1.7 (1.2-4.9) X10*3/uL [place] # (Auto) 0.5 (0.1-1.2) X10*3/uL Eos # (Auto) 0.2 (0.0-0.4) X10*3/uL Baso # (Auto) 0.0 (0.0-0.2) X10*3/uL Abs Immat Gran (auto) 0.02 (0.00-0.03) X10*3/uL Absolute Neuts (auto) 2.8 (2.0-8.3) x10*3/uL Absolute Nucleated RBC 0.000 (0.0-0.012) X10*3/uL Nucleated RBC % (auto) 0.0 (0.0-0.2) /100WBC Sodium 135 (135-145) mmol/L Potassium 3.8 (3.3-5.1) mmol/L Chloride 98 (96-108) mmol/L Carbon Dioxide 23 (22-29) mmol/L Anion Gap 18 (12-20) BUN 6 L (9-16) mg/dL Creatinine 0.99 (0.5-1.4) mg/dL Estim Creat Clear Calc 82.1 Estimated GFR > 60 Random Glucose 611 H* (60-115) mg/dL Calcium 9.8 D (8.4-10.2) mg/dL Urine Color Yellow Urine Appearance Clear Urine pH 5.5 (5.0-9.0) Ur Specific [place] >= 1.030 H (1.005-1.025) Urine Protein Negative (Neg-Trace) mg/dL Urine Glucose (UA) >=1000 H (Negative) mg/dL Urine Ketones 15 (Negative) mg/dL Urine Blood Negative (Negative) Urine Nitrite Negative (Negative) Ur Leukocyte Esterase Negative (Negative) Urine RBC 0-2 (0-2) /HPF Urine WBC 0-5 (0-5) /HPF Ur Squamous Epith Cells 0-2 (0-2) /HPF Urine Bacteria None Seen (None Seen) Hyaline Casts 0-2 (0-2) /LPF Critical Care Time Critical Care Time Critical Care Time: Yes Total Critical Care Time: 30 Attestation: I personally attest to this time spent taking care of the patient. Discharge Plan Discharge Clinical Impression: Diabetes mellitus, new onset Patient Disposition: Still a Patient Instructions: Type 2 Diabetes in Adults: New Diagnosis (ED), Diabetes and Nutrition (ED), Diabetes and Exercise (ED), How to Check your Blood Sugar (ED) Additional Instructions: 1. Begin your new medication, for the 1st 3 days only take 1 pill for the day in the morning with breakfast, you may develop some mild soft stools/diarrhea however this is normal and will resolve. After 3 days begin taking the medication twice daily with meals as indicated on the prescription bottle. 2. Follow-up with your primary care provider as scheduled on . Return to the ER for any worsening symptoms. Prescriptions: New metformin 500 mg tablet 500 mg PO BIDWMEAL Qty: 60 0RF No Action ibuprofen 800 mg tablet 800 mg PO Q8H PRN (Reason: pain) Qty: 14 0RF acetaminophen [Tylenol Extra Strength] 500 mg tablet 500 mg PO Q6H PRN (Reason: pain or fever) Qty: 20 0RF amoxicillin 500 mg capsule 500 mg PO Q8H Qty: 20 0RF tramadol 50 mg tablet 50 - 100 mg PO Q6H PRN (Reason: pain) Qty: 12 0RF ibuprofen 600 mg tablet 600 mg PO Q6H PRN (Reason: pain) Qty: 30 0RF Stand Alone Forms: Work/School Release
[2022-01-13 01:29] LABS: Acetone, serum QL Negative (Negative)
[2022-01-13] MEDS: Insulin Lispro 100 UNIT/ML 3 ML VIAL SUBCUT (01:35)
--- OUTSIDE RECORDS SUMMARY | 2022-01-13 01:40 | XMS_ITS | Continuity of Care Document ---
:1980 Author Organization [facility] Address [address] [place] [id number] Care Team Providers Name Role Phone Herve Hernandez MD Primary Care Physician Encounter [facility] Date(s): 01/07/20 - 01/07/[address] [address]- [facility] Discharge Disposition: A-D/C Walkout Attending Physician: Not on Staff, Attending MD Admitting Physician: Not on Staff, Admitting MD Referring Physician: Not on Staff, Referring MD Allergies, Adverse Reactions, Alerts Substance Reaction Severity Status NKA Active Medications No Known Medications Vital Signs Most recent to oldest [Reference Range]: 1 Oxygen Saturation [94-100 %] 100 % (01/07/20 12:38 PM) Pulse Rate [55-90 bpm] 71 bpm (01/07/20 12:38 PM) Blood Pressure [90-138/55-84 mm Hg] 171/97 mm Hg *H* (01/07/20 12:38 PM) Respiratory Rate [16-30 br/min] 18 br/min (01/07/20 12:38 PM) Temperature [96.8-100.4 DegF] 97.8 DegF (01/07/20 12:38 PM) Mode of Delivery (Oxygen) Room air (01/07/20 12:38 PM) Blood pressure sites Arm, right (01/07/20 12:38 PM) Temperature Route Oral (01/07/20 12:38 PM)
[2022-01-13] MEDS: Lactated Ringers 2,000 ML 999 ML IV (02:05)
[2022-01-13 03:47] VITALS: BP 136/87; PULSE 65; RESP 17; O2SAT 99
[2022-01-13 04:16] LABS: Anion Gap 13 (12-20); Blood Urea Nitrogen 5 mg/dL (9-16); Calcium 7.9 mg/dL (8.4-10.2); Carbon Dioxide 23 mmol/L (22-29); Chloride 107 mmol/L (96-108); Creatinine Clr Calc Pharmacy 125.1; Estimated Glomerular Filt Rate > 60; Glucose Random 248 mg/dL (60-115); Potassium 3.5 mmol/L (3.3-5.1); Sodium 139 mmol/L (135-145)
[2022-01-13 04:18] LABS: Glucose, Whole Blood 221 mg/dL (60-115)
[2022-01-13 05:12] LABS: Estimated Average Glucose 301 mg/dL; Hemoglobin A1c % 12.1 %
== END 2022-01-13 05:58 | disposition home or self-care (01) ==
PROVIDERS: Student in an Organized Health Care Education/Training Program; Emergency Provider Internal Medicine; PCP Internal Medicine
DX: E11.9 Type 2 diabetes mellitus without complications (principal); Z20.822 Contact with and (suspected) exposure to COVID-19; F17.200 Nicotine dependence, unspecified, uncomplicated
CPT/HCPCS: 0241U; 36415; 80048; 81001; 82009; 82947; 83036; 85025; 96360; 96361; 99284

== ENCOUNTER 2022-01-16 21:15 | Emergency (ER) | payer MEDICAID, SELFPAY ==
[2022-01-16 21:21] VITALS: BP 119/77; PULSE 90; RESP 18; TEMP 36.7; O2SAT 98; BMI 26.2
[2022-01-16 21:39] LABS: MANUAL DIFF FLAG NO
[2022-01-16 21:42] LABS: Basophils Percent Auto 0.4 % (0-2); Eosinophils Absolute Auto 0.2 X10*3/uL (0.0-0.4); Eosinophils Percent Auto 2.7 % (0-4); Hematocrit 44.4 % (42.0-52.0); Hemoglobin 15.7 g/dl (14.0-18.0); Imm Gran Abs Auto 0.01 X10*3/uL (0.00-0.03); Imm Gran Pct Auto 0.1 % (0.0-0.4); Lymphocytes Absolute Auto 3.2 X10*3/uL (1.2-4.9); Mean Corpuscular HGB Conc 35.4 g/dl (31.0-36.0); Mean Corpuscular Hemoglobin 27.9 pg (27.0-33.0); Mean Corpuscular Volume 78.9 fL (80.0-98.0); Mean Platelet Volume 10.7 fL (9.4-12.4); Monocytes Absolute Auto 0.7 X10*3/uL (0.1-1.2); Monocytes Percent Auto 8.8 % (2-11); Neutrophils Absolute Auto 3.5 x10*3/uL (2.0-8.3); Platelet Count 294 X10*3/uL (160-400); Red Blood Count 5.63 X10*6/uL (4.60-5.80); Red Cell Distribution Width 13.1 % (11.0-16.0); White Blood Count 7.5 X10*3/uL (4.8-10.8)
[2022-01-16 21:45] LABS: Venous Blood Gas Refer to POC result
[2022-01-16 21:45] LABS: VBG Base Excess -0.9 mmol/L; VBG HCO3 22 mmol/L (22-26); VBG pCO2 32 mmHg; VBG pH 7.44 (7.32-7.43); VBG pO2 158 mmHg
[2022-01-16 21:57] LABS: Acetone, serum QL Small (Negative)
[2022-01-16 22:17] LABS: Alanine Aminotransferase 400 U/L (0-40); Albumin Level 4.6 g/dL (3.5-5.0); Alkaline Phosphatase 106 U/L (39-117); Anion Gap 19 (12-20); Aspartate Amino Transferase 122 U/L (5-37); Bilirubin Total 1.1 mg/dL (0.0-1.0); Blood Urea Nitrogen 15 mg/dL (9-16); Calcium 10.2 mg/dL (8.4-10.2); Carbon Dioxide 19 mmol/L (22-29); Chloride 97 mmol/L (96-108); Creatinine Clr Calc Pharmacy 76.6; Estimated Glomerular Filt Rate > 60; Glucose Random 463 mg/dL (60-115); Potassium 4.1 mmol/L (3.3-5.1); Sodium 131 mmol/L (135-145); Total Protein 7.8 g/dL (6.5-8.0)
[2022-01-16 22:22] VITALS: BP 126/78; PULSE 90; RESP 18; TEMP 36.5; O2SAT 98
--- NOTE | 2022-01-16 22:48 | PC.NURSE ---
Patient is alert and oriented. He answers questions promptly and appropriately. Patient reports no pain at this time. NS given per MAY. 20 g IV placed L forearm.
[2022-01-16] MEDS: 0.9 % Sodium Chloride 2,000 ML 999 ML IV (22:51)
--- NOTE | 2022-01-17 00:20 | ED.GENADULT ---
HPI - General Adult General Chief complaint: General Medical Stated complaint: diabetic, sugar is high Time Seen by Provider: 01/16/22 22:21 Source: patient Mode of arrival: ambulatory History of Present Illness HPI narrative: 41-year-old male whom I recently diagnosed with new onset diabetes and started on metformin presents this evening for stating that his glucometer was reading ?high? and he was unsure whether not it was working correctly and asked a co-worker who said that he needed to come into the emergency room. Patient states he has seen his primary care provider and that his medication was increased and that he is been working hard to change his dietary intake. He denies any blurry vision, shortness of breath, chest pain or palpitations and states that he has had some improvement in his polyuria, polydipsia. Related Data Previous Rx's Medication Instructions Recorded acetaminophen 500 mg tablet 500 mg PO Q6H PRN pain or fever 08/26/20 (Tylenol Extra Strength) #20 tabs ibuprofen 800 mg tablet 800 mg PO Q8H PRN pain #14 tabs 08/26/20 amoxicillin 500 mg capsule 500 mg PO Q8H #20 caps 11/04/21 ibuprofen 600 mg tablet 600 mg PO Q6H PRN pain #30 tabs 11/04/21 tramadol 50 mg tablet 50 - 100 mg PO Q6H PRN pain #12 11/04/21 tabs blood-glucose meter #1 ea 01/13/22 metformin 500 mg tablet 500 mg PO BIDWMEAL #60 tabs 01/13/22 Allergies Allergy/AdvReac Type Severity Reaction Status Date / Time pistachio nut [PISTACHIO] Allergy Unknown UNKNOWN Verified 03/05/21 23:47 oxycodone [OXYCODONE] AdvReac Intermediate NAUSEA/VOMI Verified 03/05/21 23:47 TING Review of Systems Review of Systems: Pertinent positives and negatives as stated in HPI 10 point review of systems is otherwise negative. [facility] Past Medical History Source: nursing notes reviewed Medical History No pertinent past medical history Social History Social History Alcohol intake: current Alcohol intake frequency: holidays/special occasions only Alcohol type: beer Smoked in Last 30 Days: Yes Use of substances other than those prescribed or required for medical reasons: No Advance Directives: No Advance Directives Information Provided: No Physical Exam ED Vital Signs: Vital Signs - 24 hr 01/16/22 21:21 01/16/22 22:22 Temperature 98.1 F 97.7 F Pulse Rate 90 90 Respiratory Rate 18 18 Blood Pressure 119/77 126/78 Pulse Oximetry 98 98 Oxygen Delivery Method Room Air Room Air BMI result Body Mass Index 26.2 VITAL SIGNS: Reviewed. GENERAL: Well developed, well nourished, in no acute distress. HEAD: Normocephalic/atraumatic EYES: PERRLA, EOMI EARS: Ext canals without abnormality OROPHARYNX: no oral lesions noted, posterior pharynx clear LUNGS: Normal breath sounds. No adventitious sounds or accessory muscle use. SpO2<98> CARDIOVASCULAR: Regular rate and rhythm without noted murmurs ABDOMEN: Soft, non-tender, non-distended with bowel sounds. MUSCULOSKELETAL: No tenderness, deformities, or effusions noted on gross inspection. EXTREMITIES: No cyanosis, clubbing or edema. SKIN: Inspection of the skin reveals no rashes NEUROLOGIC: Alert and oriented x 4. Strength and sensation to light touch were grossly intact x 4. Course Course Course Narrative: 41-year-old male with history and clinical presentation consistent with hyperglycemia and bicarb is noted to be 19 with small amount of acetone. Patient received 2 L of IV fluids, subcu insulin and will repeat lab work. Review of all investigations demonstrates significant improvement and all laboratory values after receiving IV fluid hydration, as well as subcutaneous insulin, and patient was discharged home in stable condition with instructions to continue with his diabetic medication. Medications Administered Discontinued Medications Generic Name Dose Route Start Last Admin Trade Name Freq PRN Reason Stop Dose Admin Sodium Chloride 2,000 mls @ 999 mls/hr 01/16/22 22:30 01/16/22 22:51 Ns IV 01/17/22 00:30 999 mls/hr .Q2H1M LIZETTE Administration Insulin Human Lispro 5 unit 01/17/22 00:11 01/17/22 00:44 Insulin Lispro 100 Unit/Ml 3 Ml Vial SUBCUT 01/17/22 00:12 5 unit ONCE ONE Administration Medical Decision Making Lab Data Result diagrams: 01/16/22 21:33 01/17/22 01:25 Labs: Lab Results 11/01/2701/16/22 01/16/22 Range/Units 21:33 21:33 21:39 WBC 7.5 (4.8-10.8) X10*3/uL RBC 5.63 (4.60-5.80) X10*6/uL Hgb 15.7 (14.0-18.0) g/dl Hct 44.4 (42.0-52.0) % MCV 78.9 L (80.0-98.0) fL MCH 27.9 (27.0-33.0) pg MCHC 35.4 (31.0-36.0) g/dl RDW 13.1 (11.0-16.0) % Plt Count 294 D (160-400) X10*3/uL MPV 10.7 (9.4-12.4) fL Immature Gran % (Auto) 0.1 (0.0-0.4) % Neut % (Auto) 46.0 (45-73) % Lymph % (Auto) 42.0 H (20-40) % [place] % (Auto) 8.8 (2-11) % Eos % (Auto) 2.7 (0-4) % Baso % (Auto) 0.4 (0-2) % Lymph # (Auto) 3.2 (1.2-4.9) X10*3/uL [place] # (Auto) 0.7 (0.1-1.2) X10*3/uL Eos # (Auto) 0.2 (0.0-0.4) X10*3/uL Baso # (Auto) 0.0 (0.0-0.2) X10*3/uL Abs Immat Gran (auto) 0.01 (0.00-0.03) X10*3/uL Absolute Neuts (auto) 3.5 (2.0-8.3) x10*3/uL Absolute Nucleated RBC 0.000 (0.0-0.012) X10*3/uL Nucleated RBC % (auto) 0.0 (0.0-0.2) /100WBC VBG pH 7.44 H (7.32-7.43) VBG pCO2 32 mmHg VBG pO2 158 mmHg VBG HCO3 22 (22-26) mmol/L VBG O2 Saturation 99.0 % VBG Base Excess -0.9 mmol/L Sodium 131 L (135-145) mmol/L Potassium 4.1 (3.3-5.1) mmol/L Chloride 97 (96-108) mmol/L Carbon Dioxide 19 L (22-29) mmol/L Anion Gap 19 (12-20) BUN 15 D (9-16) mg/dL Creatinine 0.98 (0.5-1.4) mg/dL Estim Creat Clear Calc 76.6 Estimated GFR > 60 POC Glucose (60-115) mg/dL Random Glucose 463 H* (60-115) mg/dL Calcium 10.2 D (8.4-10.2) mg/dL Total Bilirubin 1.1 H (0.0-1.0) mg/dL AST 122 H (5-37) U/L ALT 400 H (0-40) U/L Alkaline Phosphatase 106 (39-117) U/L Total Protein 7.8 (6.5-8.0) g/dL Albumin 4.6 (3.5-5.0) g/dL Acetone, Qual Small H (Negative) 01/17/22 01/17/22 Range/Units 01:17 01:25 WBC (4.8-10.8) X10*3/uL RBC (4.60-5.80) X10*6/uL Hgb (14.0-18.0) g/dl Hct (42.0-52.0) % MCV (80.0-98.0) fL MCH (27.0-33.0) pg MCHC (31.0-36.0) g/dl RDW (11.0-16.0) % Plt Count (160-400) X10*3/uL MPV (9.4-12.4) fL Immature Gran % (Auto) (0.0-0.4) % Neut % (Auto) (45-73) % Lymph % (Auto) (20-40) % [place] % (Auto) (2-11) % Eos % (Auto) (0-4) % Baso % (Auto) (0-2) % Lymph # (Auto) (1.2-4.9) X10*3/uL [place] # (Auto) (0.1-1.2) X10*3/uL Eos # (Auto) (0.0-0.4) X10*3/uL Baso # (Auto) (0.0-0.2) X10*3/uL Abs Immat Gran (auto) (0.00-0.03) X10*3/uL Absolute Neuts (auto) (2.0-8.3) x10*3/uL Absolute Nucleated RBC (0.0-0.012) X10*3/uL Nucleated RBC % (auto) (0.0-0.2) /100WBC VBG pH (7.32-7.43) VBG pCO2 mmHg VBG pO2 mmHg VBG HCO3 (22-26) mmol/L VBG O2 Saturation % VBG Base Excess mmol/L Sodium 137 (135-145) mmol/L Potassium 3.4 (3.3-5.1) mmol/L Chloride 107 (96-108) mmol/L Carbon Dioxide 22 (22-29) mmol/L Anion Gap 11 L (12-20) BUN 11 (9-16) mg/dL Creatinine 0.68 (0.5-1.4) mg/dL Estim Creat Clear Calc 110.4 Estimated GFR > 60 POC Glucose 231 H (60-115) mg/dL Random Glucose 232 H (60-115) mg/dL Calcium 8.2 L D (8.4-10.2) mg/dL Total Bilirubin 0.7 (0.0-1.0) mg/dL AST 122 H (5-37) U/L ALT 321 H (0-40) U/L Alkaline Phosphatase 75 (39-117) U/L Total Protein 5.8 L (6.5-8.0) g/dL Albumin 3.6 (3.5-5.0) g/dL Acetone, Qual (Negative) Discharge Plan Discharge Clinical Impression: Hyperglycemia, Dehydration Patient Disposition: Home, Self-Care Instructions: Diabetic Hyperglycemia (ED) Additional Instructions: 1. Please continue the medications that you have been provided. 2. Follow-up with your primary care provider on Wednesday morning. Return to the ER for worsening symptoms. Prescriptions: No Action ibuprofen 800 mg tablet 800 mg PO Q8H PRN (Reason: pain) Qty: 14 0RF acetaminophen [Tylenol Extra Strength] 500 mg tablet 500 mg PO Q6H PRN (Reason: pain or fever) Qty: 20 0RF amoxicillin 500 mg capsule 500 mg PO Q8H Qty: 20 0RF tramadol 50 mg tablet 50 - 100 mg PO Q6H PRN (Reason: pain) Qty: 12 0RF ibuprofen 600 mg tablet 600 mg PO Q6H PRN (Reason: pain) Qty: 30 0RF metformin 500 mg tablet 500 mg PO BIDWMEAL Qty: 60 0RF (DME) blood-glucose meter Kit See Rx Instructions .Route Qty: 1 0RF Rx Instructions: As directed Referrals: Herve Hernandez MD [Primary Care Provider] -
[2022-01-17] MEDS: Insulin Lispro 100 UNIT/ML 3 ML VIAL SUBCUT (00:44)
--- NOTE | 2022-01-17 00:45 | PC.NURSE ---
pt a&o, no sob or chest pain. pt resting in bed on cell phone. no sign of distress. Pt placed on awake overnight monitor. Medicated per May. Will continue to monitor.
[2022-01-17 01:21] LABS: Glucose, Whole Blood 231 mg/dL (60-115)
[2022-01-17 01:56] LABS: Alanine Aminotransferase 321 U/L (0-40); Albumin Level 3.6 g/dL (3.5-5.0); Alkaline Phosphatase 75 U/L (39-117); Anion Gap 11 (12-20); Aspartate Amino Transferase 122 U/L (5-37); Bilirubin Total 0.7 mg/dL (0.0-1.0); Blood Urea Nitrogen 11 mg/dL (9-16); Calcium 8.2 mg/dL (8.4-10.2); Carbon Dioxide 22 mmol/L (22-29); Chloride 107 mmol/L (96-108); Creatinine Clr Calc Pharmacy 110.4; Estimated Glomerular Filt Rate > 60; Glucose Random 232 mg/dL (60-115); Potassium 3.4 mmol/L (3.3-5.1); Sodium 137 mmol/L (135-145); Total Protein 5.8 g/dL (6.5-8.0)
[2022-01-17 02:00] VITALS: BP 112/74; PULSE 62; RESP 11; TEMP 36.6; O2SAT 98
[2022-01-17 02:19] LABS: Glucose, Whole Blood 177 mg/dL (60-115)
--- NOTE | 2022-01-17 02:26 | PC.NURSE ---
Pt's questions were answered. Discharge instructions were given and explained to pt. Pt is A&O and is ambulating safely. IV cath tip intact when removed.
== END 2022-01-17 02:25 | disposition home or self-care (01) ==
PROVIDERS: Emergency Provider Student in an Organized Health Care Education/Training Program; PCP Internal Medicine
DX: E86.0 Dehydration (principal); E11.65 Type 2 diabetes mellitus with hyperglycemia; Z79.899 Other long term (current) drug therapy
CPT/HCPCS: 36415; 80053; 82009; 82803; 82947; 85025; 99283; 99284

== ENCOUNTER 2022-02-12 12:18 | Outpatient (REF) | payer MEDICAID, SELFPAY ==
[2022-02-12 14:12] LABS: MANUAL DIFF FLAG NO
[2022-02-12 14:22] LABS: Appearance Urine Clear; Color Urine Yellow; Glucose Urine UA >=1000 mg/dL (Negative); Leukocyte Esterase Urine Negative (Negative); Nitrite Urine Negative (Negative); PH 6.5 (5.0-9.0); Specific Gravity - Urine >= 1.030 (1.005-1.025); UMIC TRIGGER UA YES; Urine Blood Negative (Negative); Urine Ketones Negative (Negative); Urine Protein Negative (Neg-Trace)
[2022-02-12 14:25] LABS: Bacteria Urine None Seen (None Seen); Hyaline Casts Urine 0-2 /LPF (0-2); RBC Urine 0-2 /HPF (0-2); Squamous Epithelial Cell Urine 0-2 /HPF (0-2); WBC Urine 0-5 /HPF (0-5)
[2022-02-12 14:35] LABS: Basophils Percent Auto 0.1 % (0-2); Eosinophils Absolute Auto 0.1 X10*3/uL (0.0-0.4); Hematocrit 40.2 % (42.0-52.0); Hemoglobin 13.6 g/dl (14.0-18.0); Imm Gran Abs Auto 0.02 X10*3/uL (0.00-0.03); Imm Gran Pct Auto 0.3 % (0.0-0.4); Lymphocytes Absolute Auto 2.3 X10*3/uL (1.2-4.9); Lymphocytes Percent Auto 33.8 % (20-40); Mean Corpuscular HGB Conc 33.8 g/dl (31.0-36.0); Mean Corpuscular Hemoglobin 27.8 pg (27.0-33.0); Mean Platelet Volume 11.4 fL (9.4-12.4); Monocytes Absolute Auto 0.6 X10*3/uL (0.1-1.2); Monocytes Percent Auto 8.4 % (2-11); Neutrophils Absolute Auto 3.8 x10*3/uL (2.0-8.3); Neutrophils Percent Auto 55.4 % (45-73); Platelet Count 198 X10*3/uL (160-400); Red Cell Distribution Width 12.7 % (11.0-16.0); White Blood Count 6.9 X10*3/uL (4.8-10.8)
[2022-02-12 14:44] LABS: Estimated Average Glucose 346 mg/dL; Hemoglobin A1c % 13.7 %
[2022-02-12 15:27] LABS: Alanine Aminotransferase 593 U/L (0-40); Albumin Level 4.2 g/dL (3.5-5.0); Alkaline Phosphatase 97 U/L (39-117); Anion Gap 13 (12-20); Aspartate Amino Transferase 277 U/L (5-37); Bilirubin Total 0.6 mg/dL (0.0-1.0); Blood Urea Nitrogen 13 mg/dL (9-16); C Reactive Protein 0.36 mg/dL (< or = 0.50); Carbon Dioxide 28 mmol/L (22-29); Chloride 96 mmol/L (96-108); Estimated Glomerular Filt Rate > 60; Glucose Random 540 mg/dL (60-115); Lipase 122 U/L (8-78); Potassium 4.7 mmol/L (3.3-5.1); Sodium 132 mmol/L (135-145); Total Protein 6.8 g/dL (6.5-8.0)
[2022-02-12 16:09] LABS: Microalbumin Urine < 5.0 mg/L
[2022-02-12 17:21] LABS: Thyroid Stimulating Hormone 1.21 uIU/mL (0.32-4.0)
== END 2022-02-12 12:19 | disposition home or self-care (01) ==
LOC: HO.10HDL 12:18
PROVIDERS: Visit Provider Internal Medicine
DX: R10.9 Unspecified abdominal pain (principal); E11.9 Type 2 diabetes mellitus without complications; R63.4 Abnormal weight loss
CPT/HCPCS: 36415; 80053; 81001; 82043; 83036; 83690; 84443; 85025; 86140

== ENCOUNTER 2022-02-16 07:52 | Outpatient (REF) | payer OTHER, SELFPAY ==
--- NOTE | ~2022-02-16 | US_ITS ---
EXAMINATION: US ABDOMEN COMPLETE CLINICAL INFORMATION: Elevated liver test. COMPARISON: Ultrasound abdomen complete 09/13/2014. CT abdomen and pelvis 05/07/2011. TECHNIQUE: Real-time imaging of the abdominal viscera. FINDINGS: PANCREAS: The head and the body of the pancreas is homogeneous in echotexture. The tail is obscured by overlying gas. ABDOMINAL AORTA: The proximal, mid, and distal segments are normal in caliber. INFERIOR VENA CAVA: Visualized portions are normal. LIVER: Normal. The liver is normal in size. The liver contour is normal. Parenchymal echogenicity is normal. No focal hepatic lesion. There is no intrahepatic biliary duct dilatation seen. GALLBLADDER: Normal. The gallbladder is physiologically distended without evidence of stones, sludge, polyps, wall thickening or pericholecystic fluid. COMMON BILE DUCT: Normal in caliber measuring 0.3 cm in diameter. RIGHT KIDNEY: Normal. No hydronephrosis. No renal calculi or focal parenchymal lesions. The kidney measures 11.1 cm in maximum dimension. LEFT KIDNEY: Normal. No hydronephrosis. No renal calculi or focal parenchymal lesions. The kidney measures 11.0 cm in maximum dimension. SPLEEN: Normal. The spleen measures 12.0 cm in maximum dimension. FREE FLUID: None. US/US abdomen complete IMPRESSION: Unremarkable complete abdomen ultrasound.
== END 2022-02-16 07:53 | disposition home or self-care (01) ==
LOC: HO.US 07:52
PROVIDERS: Visit Provider Internal Medicine
DX: R74.01 Elevation of levels of liver transaminase levels (principal)
CPT/HCPCS: 76700

== ENCOUNTER 2022-02-19 10:33 | Outpatient (REF) | payer OTHER, SELFPAY ==
[2022-02-19 14:17] LABS: Estimated Average Glucose 346 mg/dL; Hemoglobin A1c % 13.7 %
[2022-02-19 14:38] LABS: Anion Gap 14 (12-20); Blood Urea Nitrogen 8 mg/dL (9-16); Calcium 9.3 mg/dL (8.4-10.2); Carbon Dioxide 25 mmol/L (22-29); Chloride 99 mmol/L (96-108); Estimated Glomerular Filt Rate > 60; Glucose Random 499 mg/dL (60-115); Potassium 4.6 mmol/L (3.3-5.1); Sodium 133 mmol/L (135-145)
[2022-02-20 07:31] LABS: HBS Num1 15.31 mIU/mL (0-7.99); HBsAGNum1 0.33 S/CO (0.00-0.99); Hepatitis B Surface Antigen Negative (Negative); ~HepC Num1 0.05 S/CO (0.00-0.79); ~Hepatitis B Surface Antibody REACTIVE (Nonreactive); ~Hepatitis C Antibody Nonreactive (Nonreactive)
== END 2022-02-19 10:34 | disposition home or self-care (01) ==
LOC: HO.10HDL 10:33
PROVIDERS: Visit Provider Internal Medicine
DX: E11.9 Type 2 diabetes mellitus without complications (principal); R79.89 Other specified abnormal findings of blood chemistry
CPT/HCPCS: 36415; 80048; 83036; 86706; 86803; 87340

== ENCOUNTER 2022-03-19 11:42 | Outpatient (REF) | payer OTHER, SELFPAY ==
[2022-03-19 13:58] LABS: MANUAL DIFF FLAG NO
[2022-03-19 14:18] LABS: Basophils Percent Auto 0.3 % (0-2); Eosinophils Absolute Auto 0.2 X10*3/uL (0.0-0.4); Hematocrit 44.2 % (42.0-52.0); Hemoglobin 14.5 g/dl (14.0-18.0); Imm Gran Abs Auto 0.05 X10*3/uL (0.00-0.03); Imm Gran Pct Auto 0.8 % (0.0-0.4); Lymphocytes Absolute Auto 2.3 X10*3/uL (1.2-4.9); Lymphocytes Percent Auto 38.8 % (20-40); Mean Corpuscular HGB Conc 32.8 g/dl (31.0-36.0); Mean Corpuscular Hemoglobin 27.8 pg (27.0-33.0); Mean Corpuscular Volume 84.8 fL (80.0-98.0); Mean Platelet Volume 11.3 fL (9.4-12.4); Monocytes Absolute Auto 0.5 X10*3/uL (0.1-1.2); Monocytes Percent Auto 9.1 % (2-11); Neutrophils Absolute Auto 2.8 x10*3/uL (2.0-8.3); Platelet Count 226 X10*3/uL (160-400); Red Blood Count 5.21 X10*6/uL (4.60-5.80); Red Cell Distribution Width 12.9 % (11.0-16.0); White Blood Count 5.9 X10*3/uL (4.8-10.8)
[2022-03-19 14:29] LABS: Estimated Average Glucose 289 mg/dL; Hemoglobin A1c % 11.7 %
[2022-03-19 14:30] LABS: Alanine Aminotransferase 187 U/L (0-40); Albumin Level 3.8 g/dL (3.5-5.0); Alkaline Phosphatase 97 U/L (39-117); Anion Gap 11 (12-20); Aspartate Amino Transferase 86 U/L (5-37); Bilirubin Total 0.4 mg/dL (0.0-1.0); Blood Urea Nitrogen 6 mg/dL (9-16); Carbon Dioxide 27 mmol/L (22-29); Chloride 103 mmol/L (96-108); Estimated Glomerular Filt Rate > 60; Glucose Random 259 mg/dL (60-115); Potassium 4.3 mmol/L (3.3-5.1); Sodium 137 mmol/L (135-145); Total Protein 6.5 g/dL (6.5-8.0)
== END 2022-03-19 11:43 | disposition home or self-care (01) ==
LOC: HO.10HDL 11:42
PROVIDERS: Visit Provider Internal Medicine
DX: E11.9 Type 2 diabetes mellitus without complications (principal); R10.9 Unspecified abdominal pain; R42 Dizziness and giddiness
CPT/HCPCS: 36415; 80053; 82550; 83036; 85025

== ENCOUNTER 2022-05-14 15:03 | Emergency (ER) | payer MEDICAID, SELFPAY ==
--- NOTE | 2022-05-14 15:30 | ED_ITS ---
HPI - General Adult General Chief complaint: General Medical Stated complaint: diabetic elevated blood sugar Time Seen by Provider: 05/14/22 19:05 Related Data Previous Rx's Medication Instructions Recorded acetaminophen 500 mg tablet 500 mg PO Q6H PRN pain or fever 08/26/20 (Tylenol Extra Strength) #20 tabs ibuprofen 800 mg tablet 800 mg PO Q8H PRN pain #14 tabs 08/26/20 amoxicillin 500 mg capsule 500 mg PO Q8H #20 caps 11/04/21 ibuprofen 600 mg tablet 600 mg PO Q6H PRN pain #30 tabs 11/04/21 tramadol 50 mg tablet 50 - 100 mg PO Q6H PRN pain #12 11/04/21 tabs blood-glucose meter #1 ea 01/13/22 metformin 500 mg tablet 500 mg PO BIDWMEAL #60 tabs 01/13/22 Allergies Allergy/AdvReac Type Severity Reaction Status Date / Time pistachio nut [PISTACHIO] Allergy Unknown UNKNOWN Verified 03/05/21 23:47 oxycodone [OXYCODONE] AdvReac Intermediate NAUSEA/VOMI Verified 03/05/21 23:47 TING PMFSH Past Medical History Medical History Diabetes mellitus No pertinent past medical history Social History Social History Alcohol intake: current Alcohol intake frequency: holidays/special occasions only Alcohol type: beer Advance Directives: No Advance Directives Information Provided: No Physical Exam ED Vital Signs: Vital Signs - 24 hr 05/14/22 15:32 Temperature 98.4 F Pulse Rate 77 Respiratory Rate 18 Blood Pressure 161/94 H Pulse Oximetry 99 Oxygen Delivery Method Room Air BMI result Body Mass Index 29.2 Course Course Course Narrative: This is an RME: Additional HPI, ROS, PE not included below will be deferred to primary provider. Patient is a 41-year-old male who presents emergency depart ment for evaluation of hyperglycemia; 630 approximately 2 hours ago. Was experiencing headache and blurry vision, still feeling this way now. Denies use of insulin, he is currently prescribed oral medications. New diagnosis DM approximately 4 months ago. Reports glucose levels typically around 400's. Reports polydipsia, polyphagia. Denies polyuria. Most recent A1c 11.7 03/19/2022 Plan: labs Medications Administered Discontinued Medications Generic Name Dose Route Start Last Admin Trade Name Jane PRN Reason Stop Dose Admin Insulin Glargine 20 unit 05/14/22 19:20 05/14/22 19:43 Insulin Glargine,Hum.Rec.Anlog 100 Unit/Ml 10 Ml Vial SUBCUT 05/14/22 19:21 20 unit ONCE ONE Administration Insulin Human Lispro 6 unit 05/14/22 19:26 05/14/22 19:43 Insulin Lispro 100 Unit/Ml 3 Ml Vial SUBCUT 05/14/22 19:27 6 unit ONCE ONE Administration Medical Decision Making Lab Data 05/14/22 17:14 05/14/22 17:14 Labs: Lab Results 05/14/22 05/14/22 05/14/22 Range/Units 15:41 17:14 17:14 WBC 8.1 (4.8-10.8) X10*3/uL RBC 5.50 (4.60-5.80) X10*6/uL Hgb 15.2 (14.0-18.0) g/dl Hct 45.2 (42.0-52.0) % MCV 82.2 (80.0-98.0) fL MCH 27.6 (27.0-33.0) pg MCHC 33.6 (31.0-36.0) g/dl RDW 13.2 (11.0-16.0) % Plt Count 285 D (160-400) X10*3/uL MPV 9.6 (9.4-12.4) fL Immature Gran % (Auto) 0.5 H (0.0-0.4) % Neut % (Auto) 50.3 (45-73) % Lymph % (Auto) 38.1 (20-40) % [place] % (Auto) 8.6 (2-11) % Eos % (Auto) 2.1 (0-4) % Baso % (Auto) 0.4 (0-2) % Lymph # (Auto) 3.1 (1.2-4.9) X10*3/uL [place] # (Auto) 0.7 (0.1-1.2) X10*3/uL Eos # (Auto) 0.2 (0.0-0.4) X10*3/uL Baso # (Auto) 0.0 (0.0-0.2) X10*3/uL Abs Immat Gran (auto) 0.04 H (0.00-0.03) X10*3/uL Absolute Neuts (auto) 4.1 (2.0-8.3) x10*3/uL Absolute Nucleated RBC 0.000 (0.0-0.012) X10*3/uL Nucleated RBC % (auto) 0.0 (0.0-0.2) /100WBC Sodium 138 (135-145) mmol/L Potassium 3.4 D (3.3-5.1) mmol/L Chloride 100 (96-108) mmol/L Carbon Dioxide 24 (22-29) mmol/L Anion Gap 17 (12-20) BUN 7 L (9-16) mg/dL Creatinine 0.86 (0.5-1.4) mg/dL Estim Creat Clear Calc 98.7 Estimated GFR > 60 POC Glucose 229 H (60-115) mg/dL Random Glucose 329 H (60-115) mg/dL Calcium 9.0 (8.4-10.2) mg/dL Total Bilirubin 1.1 H (0.0-1.0) mg/dL AST 20 (5-37) U/L ALT 21 (0-40) U/L Alkaline Phosphatase 97 (39-117) U/L Total Protein 7.0 (6.5-8.0) g/dL Albumin 4.1 (3.5-5.0) g/dL Lipase 31 (8-78) U/L Urine Color Urine Appearance Urine pH (5.0-9.0) Ur Specific [place] (1.005-1.025) Urine Protein (Neg-Trace) mg/dL Urine Glucose (UA) (Negative) mg/dL Urine Ketones (Negative) mg/dL Urine Blood (Negative) Urine Nitrite (Negative) Ur Leukocyte Esterase (Negative) Urine RBC (0-2) /HPF Urine WBC (0-5) /HPF Ur Squamous Epith Cells (0-2) /HPF Urine Bacteria (None Seen) Hyaline Casts (0-2) /LPF Acetone, Qual Negative (Negative) 05/14/22 05/14/22 Range/Units 19:26 19:41 WBC (4.8-10.8) X10*3/uL RBC (4.60-5.80) X10*6/uL Hgb (14.0-18.0) g/dl Hct (42.0-52.0) % MCV (80.0-98.0) fL MCH (27.0-33.0) pg MCHC (31.0-36.0) g/dl RDW (11.0-16.0) % Plt Count (160-400) X10*3/uL MPV (9.4-12.4) fL Immature Gran % (Auto) (0.0-0.4) % Neut % (Auto) (45-73) % Lymph % (Auto) (20-40) % [place] % (Auto) (2-11) % Eos % (Auto) (0-4) % Baso % (Auto) (0-2) % Lymph # (Auto) (1.2-4.9) X10*3/uL [place] # (Auto) (0.1-1.2) X10*3/uL Eos # (Auto) (0.0-0.4) X10*3/uL Baso # (Auto) (0.0-0.2) X10*3/uL Abs Immat Gran (auto) (0.00-0.03) X10*3/uL Absolute Neuts (auto) (2.0-8.3) x10*3/uL Absolute Nucleated RBC (0.0-0.012) X10*3/uL Nucleated RBC % (auto) (0.0-0.2) /100WBC Sodium (135-145) mmol/L Potassium (3.3-5.1) mmol/L Chloride (96-108) mmol/L Carbon Dioxide (22-29) mmol/L Anion Gap (12-20) BUN (9-16) mg/dL Creatinine (0.5-1.4) mg/dL Estim Creat Clear Calc Estimated GFR POC Glucose 312 H (60-115) mg/dL Random Glucose (60-115) mg/dL Calcium (8.4-10.2) mg/dL Total Bilirubin (0.0-1.0) mg/dL AST (5-37) U/L ALT (0-40) U/L Alkaline Phosphatase (39-117) U/L Total Protein (6.5-8.0) g/dL Albumin (3.5-5.0) g/dL Lipase (8-78) U/L Urine Color Yellow Urine Appearance Clear Urine pH 6.0 (5.0-9.0) Ur Specific [place] >= 1.030 H (1.005-1.025) Urine Protein Negative (Neg-Trace) mg/dL Urine Glucose (UA) >=1000 H (Negative) mg/dL Urine Ketones Trace (Negative) mg/dL Urine Blood Negative (Negative) Urine Nitrite Negative (Negative) Ur Leukocyte Esterase Negative (Negative) Urine RBC 0-2 (0-2) /HPF Urine WBC 0-5 (0-5) /HPF Ur Squamous Epith Cells 0-2 (0-2) /HPF Urine Bacteria None Seen (None Seen) Hyaline Casts 0-2 (0-2) /LPF Acetone, Qual (Negative) Discharge Plan Discharge Clinical Impression: Diabetes mellitus with hyperglycemia Patient Disposition: Home, Self-Care Instructions: Diabetic Hyperglycemia (ED) Additional Instructions: Take your Lantus insulin as prescribed by your PCP in the nighttime along with glipizide Take your to [facility] once a week Check blood sugar twice daily drink plenty of fluids Prescriptions: No Action ibuprofen 800 mg tablet 800 mg PO Q8H PRN (Reason: pain) Qty: 14 0RF acetaminophen [Tylenol Extra Strength] 500 mg tablet 500 mg PO Q6H PRN (Reason: pain or fever) Qty: 20 0RF amoxicillin 500 mg capsule 500 mg PO Q8H Qty: 20 0RF tramadol 50 mg tablet 50 - 100 mg PO Q6H PRN (Reason: pain) Qty: 12 0RF ibuprofen 600 mg tablet 600 mg PO Q6H PRN (Reason: pain) Qty: 30 0RF metformin 500 mg tablet 500 mg PO BIDWMEAL Qty: 60 0RF (DME) blood-glucose meter Kit See Rx Instructions .Route Qty: 1 0RF Rx Instructions: As directed Referrals: Gilda Brady MD [Physician] - 1 week Stand Alone Forms: Work/School Release Interventions: ED Discharge Assessment Last Done: 05/14/22 19:50 Discharge Date/Time: 05/14/22 19:50
[2022-05-14 15:32] VITALS: BP 161/94; PULSE 77; RESP 18; TEMP 36.9; O2SAT 99; BMI 29.2
[2022-05-14 15:51] LABS: Glucose, Whole Blood 229 mg/dL (60-115)
[2022-05-14 17:28] LABS: MANUAL DIFF FLAG NO
[2022-05-14 17:33] LABS: Basophils Percent Auto 0.4 % (0-2); Eosinophils Absolute Auto 0.2 X10*3/uL (0.0-0.4); Eosinophils Percent Auto 2.1 % (0-4); Hematocrit 45.2 % (42.0-52.0); Hemoglobin 15.2 g/dl (14.0-18.0); Imm Gran Abs Auto 0.04 X10*3/uL (0.00-0.03); Imm Gran Pct Auto 0.5 % (0.0-0.4); Lymphocytes Absolute Auto 3.1 X10*3/uL (1.2-4.9); Lymphocytes Percent Auto 38.1 % (20-40); Mean Corpuscular HGB Conc 33.6 g/dl (31.0-36.0); Mean Corpuscular Hemoglobin 27.6 pg (27.0-33.0); Mean Corpuscular Volume 82.2 fL (80.0-98.0); Mean Platelet Volume 9.6 fL (9.4-12.4); Monocytes Absolute Auto 0.7 X10*3/uL (0.1-1.2); Monocytes Percent Auto 8.6 % (2-11); Neutrophils Absolute Auto 4.1 x10*3/uL (2.0-8.3); Neutrophils Percent Auto 50.3 % (45-73); Platelet Count 285 X10*3/uL (160-400); Red Cell Distribution Width 13.2 % (11.0-16.0); White Blood Count 8.1 X10*3/uL (4.8-10.8)
[2022-05-14 18:05] LABS: Acetone, serum QL Negative (Negative)
[2022-05-14 18:15] LABS: Alanine Aminotransferase 21 U/L (0-40); Albumin Level 4.1 g/dL (3.5-5.0); Alkaline Phosphatase 97 U/L (39-117); Anion Gap 17 (12-20); Aspartate Amino Transferase 20 U/L (5-37); Bilirubin Total 1.1 mg/dL (0.0-1.0); Blood Urea Nitrogen 7 mg/dL (9-16); Carbon Dioxide 24 mmol/L (22-29); Chloride 100 mmol/L (96-108); Creatinine Clr Calc Pharmacy 98.7; Estimated Glomerular Filt Rate > 60; Glucose Random 329 mg/dL (60-115); Lipase 31 U/L (8-78); Potassium 3.4 mmol/L (3.3-5.1); Sodium 138 mmol/L (135-145)
--- NOTE | 2022-05-14 19:19 | ED.GENADULT ---
HPI - General Adult General Chief complaint: General Medical Stated complaint: diabetic elevated blood sugar Time Seen by Provider: 05/14/22 19:05 Source: patient Mode of arrival: ambulatory Limitations: no limitations History of Present Illness HPI narrative: Patient diabetic for last 6 months noncompliant to his Trulicity and Lantus insulin which was prescribed by the PCP takes only metformin comes here as blood sugar was elevated feeling weak with blurred vision checked his blood sugar was 630 no abdominal pain or nausea no vomiting otherwise patient feels normal Related Data Previous Rx's Medication Instructions Recorded acetaminophen 500 mg tablet 500 mg PO Q6H PRN pain or fever 08/26/20 (Tylenol Extra Strength) #20 tabs ibuprofen 800 mg tablet 800 mg PO Q8H PRN pain #14 tabs 08/26/20 amoxicillin 500 mg capsule 500 mg PO Q8H #20 caps 11/04/21 ibuprofen 600 mg tablet 600 mg PO Q6H PRN pain #30 tabs 11/04/21 tramadol 50 mg tablet 50 - 100 mg PO Q6H PRN pain #12 11/04/21 tabs blood-glucose meter #1 ea 01/13/22 metformin 500 mg tablet 500 mg PO BIDWMEAL #60 tabs 01/13/22 Allergies Allergy/AdvReac Type Severity Reaction Status Date / Time pistachio nut [PISTACHIO] Allergy Unknown UNKNOWN Verified 03/05/21 23:47 oxycodone [OXYCODONE] AdvReac Intermediate NAUSEA/VOMI Verified 03/05/21 23:47 TING Review of Systems Review of Systems: Constitutional : No Weight loss, No Fever, No Chills ENT/Mouth : No sore throat, No Rhinorrhea Eyes: No Eye Pain, No Swelling Cardiovascular : No Chest Pain, no palpitations Respiratory : No Cough, No Sputum, no shortness of breath Gastrointestinal : no Nausea, No Vomiting, No Diarrhea, No abdominal Pain, no black stools Genitourinary : No Dysuria, No Urinary Frequency Musculoskeletal : No joint pain, No Myalgias, No Joint Swelling Skin : No Skin Lesions, No rash Neuro : No Weakness, No Numbness, No Dizziness, No Headache Psych : No Anxiety/Panic, No Depression Heme/Lymph: No Bruising, No Lymphadenopathy Endocrine : No Polyuria, No Polydipsia All other systems reviewed and are negative Yes all other systems are reviewed and are negative PMFSH Past Medical History Medical History Diabetes mellitus No pertinent past medical history Social History Social History Alcohol intake: current Alcohol intake frequency: holidays/special occasions only Alcohol type: beer Advance Directives: No Advance Directives Information Provided: No Physical Exam ED Vital Signs: Vital Signs - 24 hr 05/14/22 15:32 05/14/22 19:28 Temperature 98.4 F 98.2 F Pulse Rate 77 79 Respiratory Rate 18 16 Blood Pressure 161/94 H 125/80 Pulse Oximetry 99 98 Oxygen Delivery Method Room Air Room Air BMI result Body Mass Index 29.2 Appearance: Alert. Oriented X3. No acute distress. Eyes: PERRLA, No Nystagmus ENT: Pharynx normal. Oral Mucosa moist Neck: Normal inspection. Neck supple. CVS: Normal heart rate and rhythm. Pulses normal. Respiratory: No respiratory distress. Equal air entry bilateral, no wheezing/rales/rhonchi Abdomen: Soft and nontender. Bowel sounds are present, no mass palpable, no CVA tenderness Skin: Skin warm and dry. Normal skin color. Normal skin turgor. Extremities: No lower extremity edema. No calf tenderness Neuro: Oriented X 3. No motor deficit. No sensory deficit.No cerebellar signs , cranial nerves II-XII intact Medications Administered Discontinued Medications Generic Name Dose Route Start Last Admin Trade Name Freq PRN Reason Stop Dose Admin Insulin Glargine 20 unit 05/14/22 19:20 05/14/22 19:43 Insulin Glargine,Hum.Rec.Anlog 100 Unit/Ml 10 Ml Vial SUBCUT 05/14/22 19:21 20 unit ONCE ONE Administration Insulin Human Lispro 6 unit 05/14/22 19:26 05/14/22 19:43 Insulin Lispro 100 Unit/Ml 3 Ml Vial SUBCUT 05/14/22 19:27 6 unit ONCE ONE Administration Medical Decision Making Medical Decision Making [facility] Narrative: Patient re-educated about importance of taking Lantus insulin and his Trulicity has both of them at home was given 1 dose here advised to follow with PCP/cut off man. Blood sugar improved to 312 Lab Data [facility] Lab Attestation statement: I reviewed the patient's lab results. 05/14/22 17:14 05/14/22 17:14 Labs: Lab Results 05/14/22 05/14/22 05/14/22 Range/Units 15:41 17:14 17:14 WBC 8.1 (4.8-10.8) X10*3/uL RBC 5.50 (4.60-5.80) X10*6/uL Hgb 15.2 (14.0-18.0) g/dl Hct 45.2 (42.0-52.0) % MCV 82.2 (80.0-98.0) fL MCH 27.6 (27.0-33.0) pg MCHC 33.6 (31.0-36.0) g/dl RDW 13.2 (11.0-16.0) % Plt Count 285 D (160-400) X10*3/uL MPV 9.6 (9.4-12.4) fL Immature Gran % (Auto) 0.5 H (0.0-0.4) % Neut % (Auto) 50.3 (45-73) % Lymph % (Auto) 38.1 (20-40) % [place] % (Auto) 8.6 (2-11) % Eos % (Auto) 2.1 (0-4) % Baso % (Auto) 0.4 (0-2) % Lymph # (Auto) 3.1 (1.2-4.9) X10*3/uL [place] # (Auto) 0.7 (0.1-1.2) X10*3/uL Eos # (Auto) 0.2 (0.0-0.4) X10*3/uL Baso # (Auto) 0.0 (0.0-0.2) X10*3/uL Abs Immat Gran (auto) 0.04 H (0.00-0.03) X10*3/uL Absolute Neuts (auto) 4.1 (2.0-8.3) x10*3/uL Absolute Nucleated RBC 0.000 (0.0-0.012) X10*3/uL Nucleated RBC % (auto) 0.0 (0.0-0.2) /100WBC Sodium 138 (135-145) mmol/L Potassium 3.4 D (3.3-5.1) mmol/L Chloride 100 (96-108) mmol/L Carbon Dioxide 24 (22-29) mmol/L Anion Gap 17 (12-20) BUN 7 L (9-16) mg/dL Creatinine 0.86 (0.5-1.4) mg/dL Estim Creat Clear Calc 98.7 Estimated GFR > 60 POC Glucose 229 H (60-115) mg/dL Random Glucose 329 H (60-115) mg/dL Calcium 9.0 (8.4-10.2) mg/dL Total Bilirubin 1.1 H (0.0-1.0) mg/dL AST 20 (5-37) U/L ALT 21 (0-40) U/L Alkaline Phosphatase 97 (39-117) U/L Total Protein 7.0 (6.5-8.0) g/dL Albumin 4.1 (3.5-5.0) g/dL Lipase 31 (8-78) U/L Urine Color Urine Appearance Urine pH (5.0-9.0) Ur Specific [place] (1.005-1.025) Urine Protein (Neg-Trace) mg/dL Urine Glucose (UA) (Negative) mg/dL Urine Ketones (Negative) mg/dL Urine Blood (Negative) Urine Nitrite (Negative) Ur Leukocyte Esterase (Negative) Urine RBC (0-2) /HPF Urine WBC (0-5) /HPF Ur Squamous Epith Cells (0-2) /HPF Urine Bacteria (None Seen) Hyaline Casts (0-2) /LPF Acetone, Qual Negative (Negative) 05/14/22 05/14/22 Range/Units 19:26 19:41 WBC (4.8-10.8) X10*3/uL RBC (4.60-5.80) X10*6/uL Hgb (14.0-18.0) g/dl Hct (42.0-52.0) % MCV (80.0-98.0) fL MCH (27.0-33.0) pg MCHC (31.0-36.0) g/dl RDW (11.0-16.0) % Plt Count (160-400) X10*3/uL MPV (9.4-12.4) fL Immature Gran % (Auto) (0.0-0.4) % Neut % (Auto) (45-73) % Lymph % (Auto) (20-40) % [place] % (Auto) (2-11) % Eos % (Auto) (0-4) % Baso % (Auto) (0-2) % Lymph # (Auto) (1.2-4.9) X10*3/uL [place] # (Auto) (0.1-1.2) X10*3/uL Eos # (Auto) (0.0-0.4) X10*3/uL Baso # (Auto) (0.0-0.2) X10*3/uL Abs Immat Gran (auto) (0.00-0.03) X10*3/uL Absolute Neuts (auto) (2.0-8.3) x10*3/uL Absolute Nucleated RBC (0.0-0.012) X10*3/uL Nucleated RBC % (auto) (0.0-0.2) /100WBC Sodium (135-145) mmol/L Potassium (3.3-5.1) mmol/L Chloride (96-108) mmol/L Carbon Dioxide (22-29) mmol/L Anion Gap (12-20) BUN (9-16) mg/dL Creatinine (0.5-1.4) mg/dL Estim Creat Clear Calc Estimated GFR POC Glucose 312 H (60-115) mg/dL Random Glucose (60-115) mg/dL Calcium (8.4-10.2) mg/dL Total Bilirubin (0.0-1.0) mg/dL AST (5-37) U/L ALT (0-40) U/L Alkaline Phosphatase (39-117) U/L Total Protein (6.5-8.0) g/dL Albumin (3.5-5.0) g/dL Lipase (8-78) U/L Urine Color Yellow Urine Appearance Clear Urine pH 6.0 (5.0-9.0) Ur Specific [place] >= 1.030 H (1.005-1.025) Urine Protein Negative (Neg-Trace) mg/dL Urine Glucose (UA) >=1000 H (Negative) mg/dL Urine Ketones Trace (Negative) mg/dL Urine Blood Negative (Negative) Urine Nitrite Negative (Negative) Ur Leukocyte Esterase Negative (Negative) Urine RBC 0-2 (0-2) /HPF Urine WBC 0-5 (0-5) /HPF Ur Squamous Epith Cells 0-2 (0-2) /HPF Urine Bacteria None Seen (None Seen) Hyaline Casts 0-2 (0-2) /LPF Acetone, Qual (Negative) Discharge Plan Discharge Clinical Impression: Diabetes mellitus with hyperglycemia Patient Disposition: Home, Self-Care Additional Instructions: Take your Lantus insulin as prescribed by your PCP in the nighttime along with glipizide Take your to [facility] once a week Check blood sugar twice daily drink plenty of fluids Prescriptions: No Action ibuprofen 800 mg tablet 800 mg PO Q8H PRN (Reason: pain) Qty: 14 0RF acetaminophen [Tylenol Extra Strength] 500 mg tablet 500 mg PO Q6H PRN (Reason: pain or fever) Qty: 20 0RF amoxicillin 500 mg capsule 500 mg PO Q8H Qty: 20 0RF tramadol 50 mg tablet 50 - 100 mg PO Q6H PRN (Reason: pain) Qty: 12 0RF ibuprofen 600 mg tablet 600 mg PO Q6H PRN (Reason: pain) Qty: 30 0RF metformin 500 mg tablet 500 mg PO BIDWMEAL Qty: 60 0RF (DME) blood-glucose meter Kit See Rx Instructions .Route Qty: 1 0RF Rx Instructions: As directed Referrals: Gilda Brady MD [Physician] - 1 week Stand Alone Forms: Work/School Release Interventions: ED Discharge Assessment Last Done: 05/14/22 19:50 Discharge Date/Time: 05/14/22 19:50
[2022-05-14 19:28] VITALS: BP 125/80; PULSE 79; RESP 16; TEMP 36.8; O2SAT 98
[2022-05-14] MEDS: Insulin Lispro 100 UNIT/ML 3 ML VIAL 6 UNIT SUBCUT (19:43)
[2022-05-14] MEDS: Insulin Glargine,Hum.rec.anlog 100 UNIT/ML 10 ML VIAL 20 UNIT SUBCUT (19:43)
--- NOTE | 2022-05-14 19:47 | MHC.EDTECH ---
pt blood sugar taken ,urine sample collected and sent to lab ,vitals sign taken .
[2022-05-14 19:59] LABS: Appearance Urine Clear; Color Urine Yellow; Glucose Urine UA >=1000 mg/dL (Negative); Leukocyte Esterase Urine Negative (Negative); Nitrite Urine Negative (Negative); Specific Gravity - Urine >= 1.030 (1.005-1.025); UMIC TRIGGER UACC YES; Urine Blood Negative (Negative); Urine Ketones Trace mg/dL (Negative); Urine Protein Negative (Neg-Trace)
[2022-05-14 20:02] LABS: Bacteria Urine None Seen (None Seen); Hyaline Casts Urine 0-2 /LPF (0-2); RBC Urine 0-2 /HPF (0-2); Squamous Epithelial Cell Urine 0-2 /HPF (0-2); WBC Urine 0-5 /HPF (0-5)
[2022-05-14 20:46] LABS: Glucose, Whole Blood 312 mg/dL (60-115)
== END 2022-05-14 19:50 | disposition home or self-care (01) ==
PROVIDERS: Nurse Practitioner Family; Emergency Provider Internal Medicine; PCP Internal Medicine
DX: E11.65 Type 2 diabetes mellitus with hyperglycemia (principal); Z79.899 Other long term (current) drug therapy; Z79.4 Long term (current) use of insulin
CPT/HCPCS: 36415; 80053; 81001; 81003; 82009; 82947; 83690; 85025; 99283

== ENCOUNTER 2022-10-06 07:36 | Emergency (ER) | payer OTHER, SELFPAY ==
--- NOTE | ~2022-10-06 | XR_ITS ---
EXAMINATION: XR CHEST CLINICAL INFORMATION: Shortness of breath COMPARISON: Chest radiograph from 11/04/2014 TECHNIQUE: 2 views of the chest were obtained. FINDINGS: Stable elevation of the right hemidiaphragm. Very slight right medial lung base atelectasis versus evolving infectious/inflammatory etiology. No pneumothorax. Trachea is midline. Cardiac mediastinal silhouette is stable. No large pleural effusion. Degenerative changes of the thoracolumbar spine. Soft tissues are unremarkable. XR/XR chest 2V IMPRESSION: 1. Stable elevation of the right hemidiaphragm. 2. Very slight right medial lung base atelectasis versus evolving infectious/inflammatory etiology.
[2022-10-06 07:41] VITALS: BP 140/80; PULSE 85; RESP 16; TEMP 36.2; O2SAT 99; BMI 32.8
--- NOTE | 2022-10-06 07:49 | ECG_ITS ---
Test Reason : weakness Blood Pressure : / mmHG Vent. Rate : 074 BPM Atrial Rate : 074 BPM P-R Int : 148 ms QRS Dur : 082 ms QT Int : 396 ms P-R-T Axes : 048 053 021 degrees QTc Int : 439 ms Normal sinus rhythm Minimal voltage criteria for LVH, may be normal variant ( Sokolow-Khan ) Borderline ECG When compared with ECG of 28-NOV-2020 22:33, No significant change was found Referred By: Mervin Singh Electronically Signed By:ALEX REYNOSO
[2022-10-06 07:52] LABS: Glucose, Whole Blood 268 mg/dL (60-115)
--- NOTE | 2022-10-06 08:00 | ED_ITS ---
HPI - General Adult General Chief complaint: General Medical Stated complaint: Fever/Diff breathing/Vision loss L eye Time Seen by Provider: 10/06/22 07:52 Source: patient Mode of arrival: ambulatory Limitations: no limitations History of Present Illness HPI narrative: 42-year-old male presents with a constellation complaints. The complaints started proximally 1 week ago. Include sinus congestion, chills, nausea, no vomiting, diarrhea. He denies any shortness of breath or objective fevers. He denies any sore throat but has had some rhinorrhea. There is no clear relieving or exacerbating features. He has never had anything like this before. Patient describes the symptoms as severe. There is no relieving or exacerbating features. Patient's appetite has been appropriate. Patient also is also compla ining of 1 year of intermittent rectal bleeding. The symptoms can be severe. Primary care provider is aware of this. He is not on any blood thinning medications. He reports bright red blood and sometimes maroon or dark blood. He denies any abdominal pain. He does have some rectal issues which started about 1 week ago where he has noticed a bump along the tailbone area that can be painful with defecation Related Data Previous Rx's Medication Instructions Recorded acetaminophen 500 mg tablet 500 mg PO Q6H PRN pain or fever 08/26/20 (Tylenol Extra Strength) #20 tabs ibuprofen 800 mg tablet 800 mg PO Q8H PRN pain #14 tabs 08/26/20 amoxicillin 500 mg capsule 500 mg PO Q8H #20 caps 11/04/21 ibuprofen 600 mg tablet 600 mg PO Q6H PRN pain #30 tabs 11/04/21 tramadol 50 mg tablet 50 - 100 mg PO Q6H PRN pain #12 11/04/21 tabs blood-glucose meter #1 ea 01/13/22 metformin 500 mg tablet 500 mg PO BIDWMEAL #60 tabs 01/13/22 amoxicillin 875 mg tablet 875 mg PO Q12H #20 tabs 10/06/22 fluticasone propionate 50 1 spray intranasal DAILY #16 grams 10/06/22 mcg/actuation nasal spray,suspension (Children's Flonase Allergy Relief) hydrocortisone 2.5 % topical cream 1 appl [place] DAILY PRN hemorrhoids 10/06/22 with perineal applicator #30 grams (Anusol-HC) Allergies Allergy/AdvReac Type Severity Reaction Status Date / Time pistachio nut [PISTACHIO] Allergy Unknown UNKNOWN Verified 03/05/21 23:47 oxycodone [OXYCODONE] AdvReac Intermediate NAUSEA/VOMI Verified 03/05/21 23:47 TING Review of Systems Review of Systems: CONSTITUTIONAL: Denies weight loss, fever + chills. HEENT: Denies changes in vision and hearing. RESPIRATORY: Denies SOB and cough. CV: Denies palpitations no CP. GI: Denies abdominal pain, nausea, vomiting + diarrhea. : Denies dysuria and urinary frequency. MSK: Denies myalgia and joint pain. SKIN: Denies rash and pruritus. NEUROLOGICAL: Denies headache and syncope. PSYCHIATRIC: Denies recent changes in mood. Denies anxiety and depression. All other ROS are negative unless in HPI [facility] Past Medical History Medical History Diabetes mellitus No pertinent past medical history Social History Social History Alcohol intake: current Alcohol intake frequency: holidays/special occasions only Alcohol type: beer Advance Directives: No Advance Directives Information Provided: Yes Physical Exam ED Vital Signs: Vital Signs - 24 hr 10/06/22 07:41 Temperature 97.2 F Pulse Rate 85 Respiratory Rate 16 Blood Pressure 140/80 H Pulse Oximetry 99 Oxygen Delivery Method Room Air BMI result Body Mass Index 32.8 GEN: Well developed, no acute distress, alert, oriented HEENT: Normocephalic, atraumatic, normal external ears, nose appears normal, no oropharyngeal edema or exudates Eyes: Normal to appearance Neck: Supple, no lymphadenopathy Respiratory: Talks in complete sentences, no respiratory distress, clear to auscultation bilaterally Cardiovascular: Regular rate and rhythm, no murmurs rubs or gallops Abdomen: Soft, nontender, nondistended, no guarding, no rebound Back: No CVA tenderness Extremities: No clubbing cyanosis or edema Neurologic: No focal neurologic deficits, cranial nerves 2-12 intact, strength is 5/5 bilaterally Skin: No rash Rectal: There is a small soft tissue swelling in the is 12 o'clock position/tailbone area does not an abscess. Questionable external hemorrhoid. Course Course Course Narrative: Is 927. The workup is complete. Patient is negative for COVID or influenza. Chest x-ray shows no significant acute cardiopulmonary disease. At this point I suspect sinusitis. Will treat with amoxicillin and Flonase. He will take an [id number] decongestant. In addition for the rectal bleeding, his blood counts appear to be normal and fairly stable. Will refer to Gastroenterology. Will order hydrocortisone rectal cream and give information on Sitz baths Medical Decision Making Medical Decision Making [facility] Narrative: Patient presents with a constellation of multiple complaints. Differential diagnosis is likely viral syndrome such as COVID, influenza or other nondescript viral illness. Possibly sinusitis. Seasonal allergies would be under consideration as well. His examination is overall benign. He does complain of rectal bleeding has been going on intermittently for 1 year. I believe this certainly warrants significant evaluation likely with colonoscopy. Will refer the patient to GI. As far as his systemic symptoms or concern, will obtain an influenza, COVID, check routine laboratory analysis, chest x-ray. As far as the rectal bleeding, there is possible small external hemorrhoid. I do not see any fissures. Denies any significant straining. His belly is benign. There is no indication for emergent imaging at this time. Differential Diagnosis Differential Diagnoses: The differential diagnosis associated with the presentation includes (See above) Admission/Observation Consideration of admission/observation: Escalation of care including admission/observation considered Lab Data [facility] Lab Attestation statement: I reviewed the patient's lab results. 10/06/22 08:09 10/06/22 08:09 Labs: Lab Results 10/06/22 10/06/22 10/06/22 Range/Units 07:48 08:09 08:09 WBC 6.7 (4.8-10.8) X10*3/uL RBC 5.07 (4.60-5.80) X10*6/uL Hgb 14.0 (14.0-18.0) g/dl Hct 40.9 L (42.0-52.0) % MCV 80.7 (80.0-98.0) fL MCH 27.6 (27.0-33.0) pg MCHC 34.2 (31.0-36.0) g/dl RDW 13.1 (11.0-16.0) % Plt Count 251 (160-400) X10*3/uL MPV 9.5 (9.4-12.4) fL Immature Gran % (Auto) 0.3 (0.0-0.4) % Neut % (Auto) 55.1 (45-73) % Lymph % (Auto) 32.1 (20-40) % [place] % (Auto) 9.8 (2-11) % Eos % (Auto) 2.4 (0-4) % Baso % (Auto) 0.3 (0-2) % Lymph # (Auto) 2.2 (1.2-4.9) X10*3/uL [place] # (Auto) 0.7 (0.1-1.2) X10*3/uL Eos # (Auto) 0.2 (0.0-0.4) X10*3/uL Baso # (Auto) 0.0 (0.0-0.2) X10*3/uL Abs Immat Gran (auto) 0.02 (0.00-0.03) X10*3/uL Absolute Neuts (auto) 3.7 (2.0-8.3) x10*3/uL Absolute Nucleated RBC 0.000 (0.0-0.012) X10*3/uL Nucleated RBC % (auto) 0.0 (0.0-0.2) /100WBC Sodium 137 (135-145) mmol/L Potassium 3.7 (3.3-5.1) mmol/L Chloride 104 (96-108) mmol/L Carbon Dioxide 21 L (22-29) mmol/L Anion Gap 16 (12-20) BUN 7 L (9-16) mg/dL Creatinine 0.75 (0.5-1.4) mg/dL Estim Creat Clear Calc 114.1 Estimated GFR > 60 POC Glucose 268 H (60-115) mg/dL Random Glucose 211 H (60-115) mg/dL Calcium 9.0 (8.4-10.2) mg/dL Total Bilirubin 0.4 (0.0-1.0) mg/dL AST 15 (5-37) U/L ALT 18 (0-40) U/L Alkaline Phosphatase 83 (39-117) U/L Total Protein 7.2 (6.5-8.0) g/dL Albumin 3.9 (3.5-5.0) g/dL COVID-19 (BRIELLE) (Negative) COVID-19 Clin Com Influenza Type A (ELIZABETH) (Negative) Influenza Type B (ELIZABETH) (Negative) Influenza A & B Note 10/06/22 10/06/22 Range/Units 08:09 08:09 WBC (4.8-10.8) X10*3/uL RBC (4.60-5.80) X10*6/uL Hgb (14.0-18.0) g/dl Hct (42.0-52.0) % MCV (80.0-98.0) fL MCH (27.0-33.0) pg MCHC (31.0-36.0) g/dl RDW (11.0-16.0) % Plt Count (160-400) X10*3/uL MPV (9.4-12.4) fL Immature Gran % (Auto) (0.0-0.4) % Neut % (Auto) (45-73) % Lymph % (Auto) (20-40) % [place] % (Auto) (2-11) % Eos % (Auto) (0-4) % Baso % (Auto) (0-2) % Lymph # (Auto) (1.2-4.9) X10*3/uL [place] # (Auto) (0.1-1.2) X10*3/uL Eos # (Auto) (0.0-0.4) X10*3/uL Baso # (Auto) (0.0-0.2) X10*3/uL Abs Immat Gran (auto) (0.00-0.03) X10*3/uL Absolute Neuts (auto) (2.0-8.3) x10*3/uL Absolute Nucleated RBC (0.0-0.012) X10*3/uL Nucleated RBC % (auto) (0.0-0.2) /100WBC Sodium (135-145) mmol/L Potassium (3.3-5.1) mmol/L Chloride (96-108) mmol/L Carbon Dioxide (22-29) mmol/L Anion Gap (12-20) BUN (9-16) mg/dL Creatinine (0.5-1.4) mg/dL Estim Creat Clear Calc Estimated GFR POC Glucose (60-115) mg/dL Random Glucose (60-115) mg/dL Calcium (8.4-10.2) mg/dL Total Bilirubin (0.0-1.0) mg/dL AST (5-37) U/L ALT (0-40) U/L Alkaline Phosphatase (39-117) U/L Total Protein (6.5-8.0) g/dL Albumin (3.5-5.0) g/dL COVID-19 (BRIELLE) Negative (Negative) COVID-19 Clin Com See Note Influenza Type A (ELIZABETH) Negative (Negative) Influenza Type B (ELIZABETH) Negative (Negative) Influenza A & B Note See Note Independent Interpretation I performed an independent interpretation of an: EKG (Normal sinus rhythm heart rate 74, no acute ST elevations depressions, normal intervals.) and Plain X-Ray (Chest: No acute cardiopulmonary disease) Radiology Impression Discussion of test interpretation with radiology: I have reviewed the radiologist's reading. Radiologist Impression: XR/XR chest 2V IMPRESSION: 1.? Stable elevation of the right hemidiaphragm. 2.? Very slight right medial lung base atelectasis versus evolving infectious/inflammatory etiology. ? Dictated By: Luh Moss MD Signed By: <Electronically signed by Luh Moss MD in > 10/06/22 0831 Tests considered The following testing was considered but not selected: CT scan abdomen and pelvis Prescription Management I considered prescription management with: Antibiotic Chronic Conditions Patient?s care impacted by: Diabetes Discharge Plan Discharge Clinical Impression: Acute sinusitis, Rectal bleeding Patient Disposition: Home, Self-Care Instructions: Hemorrhoids (ED), Rectal Bleeding (ED), Sinusitis (ED), Sitz Bath (DC) Prescriptions: New amoxicillin 875 mg tablet 875 mg PO Q12H Qty: 20 0RF fluticasone propionate [Children's Flonase Allergy Rlf] 50 mcg/actuation spray,suspension 1 spray intranasal DAILY Qty: 16 0RF Rx Instructions: administer into each nostril hydrocortisone [Anusol-HC] 2.5 % cream with perineal applicator 1 appl [place] DAILY PRN (Reason: hemorrhoids) Qty: 30 0RF No Action ibuprofen 800 mg tablet 800 mg PO Q8H PRN (Reason: pain) Qty: 14 0RF acetaminophen [Tylenol Extra Strength] 500 mg tablet 500 mg PO Q6H PRN (Reason: pain or fever) Qty: 20 0RF amoxicillin 500 mg capsule 500 mg PO Q8H Qty: 20 0RF tramadol 50 mg tablet 50 - 100 mg PO Q6H PRN (Reason: pain) Qty: 12 0RF ibuprofen 600 mg tablet 600 mg PO Q6H PRN (Reason: pain) Qty: 30 0RF metformin 500 mg tablet 500 mg PO BIDWMEAL Qty: 60 0RF (DME) blood-glucose meter Kit See Rx Instructions .Route Qty: 1 0RF Rx Instructions: As directed Referrals: Herve Hernandez MD [Primary Care Provider] - 1 week Jennifer Johansen MD [Physician] -
--- NOTE | 2022-10-06 08:12 | PC.NURSE ---
labs/swabs obtained. alert and oriented, resp even and unlabored.
[2022-10-06 08:13] LABS: MANUAL DIFF FLAG NO
[2022-10-06 08:16] LABS: Basophils Percent Auto 0.3 % (0-2); Eosinophils Absolute Auto 0.2 X10*3/uL (0.0-0.4); Eosinophils Percent Auto 2.4 % (0-4); Hematocrit 40.9 % (42.0-52.0); Imm Gran Abs Auto 0.02 X10*3/uL (0.00-0.03); Imm Gran Pct Auto 0.3 % (0.0-0.4); Lymphocytes Absolute Auto 2.2 X10*3/uL (1.2-4.9); Lymphocytes Percent Auto 32.1 % (20-40); Mean Corpuscular HGB Conc 34.2 g/dl (31.0-36.0); Mean Corpuscular Hemoglobin 27.6 pg (27.0-33.0); Mean Corpuscular Volume 80.7 fL (80.0-98.0); Mean Platelet Volume 9.5 fL (9.4-12.4); Monocytes Absolute Auto 0.7 X10*3/uL (0.1-1.2); Monocytes Percent Auto 9.8 % (2-11); Neutrophils Absolute Auto 3.7 x10*3/uL (2.0-8.3); Neutrophils Percent Auto 55.1 % (45-73); Platelet Count 251 X10*3/uL (160-400); Red Blood Count 5.07 X10*6/uL (4.60-5.80); Red Cell Distribution Width 13.1 % (11.0-16.0); White Blood Count 6.7 X10*3/uL (4.8-10.8)
[2022-10-06 08:33] LABS: COVID-19 Test Negative (Negative); IDNOW Serial# 08D9AD1C; IDNOW Serial# 9DB6401D; Influenza A Negative (Negative); Influenza B2 Negative (Negative)
[2022-10-06 08:35] LABS: Alanine Aminotransferase 18 U/L (0-40); Albumin Level 3.9 g/dL (3.5-5.0); Alkaline Phosphatase 83 U/L (39-117); Anion Gap 16 (12-20); Aspartate Amino Transferase 15 U/L (5-37); Bilirubin Total 0.4 mg/dL (0.0-1.0); Blood Urea Nitrogen 7 mg/dL (9-16); Carbon Dioxide 21 mmol/L (22-29); Chloride 104 mmol/L (96-108); Creatinine Clr Calc Pharmacy 114.1; Estimated Glomerular Filt Rate > 60; Glucose Random 211 mg/dL (60-115); Potassium 3.7 mmol/L (3.3-5.1); Sodium 137 mmol/L (135-145); Total Protein 7.2 g/dL (6.5-8.0)
== END 2022-10-06 09:39 | disposition home or self-care (01) ==
PROVIDERS: Emergency Provider Emergency Medicine; PCP Internal Medicine
DX: J01.90 Acute sinusitis, unspecified (principal); K62.5 Hemorrhage of anus and rectum; Z20.822 Contact with and (suspected) exposure to COVID-19; E11.9 Type 2 diabetes mellitus without complications; Z79.84 Long term (current) use of oral hypoglycemic drugs
CPT/HCPCS: 36415; 71046; 80053; 82947; 85025; 87502; 87635; 93005; 99283; 99284

== ENCOUNTER → 2022-10-06 07:49 | Outpatient (BNV) | payer SELFPAY | PROVIDERS: Emergency Provider Emergency Medicine; PCP Internal Medicine; Visit Provider Internal Medicine | DX: M62.81 Muscle weakness (generalized) (principal); R94.31 Abnormal electrocardiogram [ECG] [EKG] | CPT/HCPCS: 93010 ==

== ENCOUNTER 2023-02-23 11:17 | Outpatient (REF) | payer SELFPAY ==
[2023-02-23 13:24] LABS: MANUAL DIFF FLAG NO
[2023-02-23 13:30] LABS: Basophils Percent Auto 0.3 % (0-2); Eosinophils Absolute Auto 0.3 X10*3/uL (0.0-0.4); Eosinophils Percent Auto 3.3 % (0-4); Hematocrit 40.6 % (42.0-52.0); Hemoglobin 13.6 g/dl (14.0-18.0); Imm Gran Abs Auto 0.02 X10*3/uL (0.00-0.03); Imm Gran Pct Auto 0.3 % (0.0-0.4); Lymphocytes Absolute Auto 3.3 X10*3/uL (1.2-4.9); Lymphocytes Percent Auto 41.6 % (20-40); Mean Corpuscular HGB Conc 33.5 g/dl (31.0-36.0); Mean Corpuscular Hemoglobin 27.3 pg (27.0-33.0); Mean Corpuscular Volume 81.4 fL (80.0-98.0); Mean Platelet Volume 10.2 fL (9.4-12.4); Monocytes Absolute Auto 0.8 X10*3/uL (0.1-1.2); Monocytes Percent Auto 10.5 % (2-11); Neutrophils Absolute Auto 3.5 x10*3/uL (2.0-8.3); Platelet Count 277 X10*3/uL (160-400); Red Blood Count 4.99 X10*6/uL (4.60-5.80); Red Cell Distribution Width 12.9 % (11.0-16.0); White Blood Count 7.9 X10*3/uL (4.8-10.8)
[2023-02-23 13:41] LABS: Estimated Average Glucose 126 mg/dL; Hemoglobin A1C 151.5882 umol/L
[2023-02-23 14:09] LABS: Creatinine Urine 116.01 mg/dL; Microalbum/Creatinine Ratio Ur 5.1 ug/mg cr (<30)
[2023-02-23 18:12] LABS: Alanine Aminotransferase 40 U/L (0-40); Albumin Level 4.2 g/dL (3.5-5.0); Alkaline Phosphatase 87 U/L (39-117); Anion Gap 15 (12-20); Aspartate Amino Transferase 67 U/L (5-37); Bilirubin Total 0.4 mg/dL (0.0-1.0); Blood Urea Nitrogen 8 mg/dL (9-16); Calcium 9.4 mg/dL (8.4-10.2); Carbon Dioxide 25 mmol/L (22-29); Chloride 104 mmol/L (96-108); Cholesterol 172 mg/dL (<200); Estimated Glomerular Filt Rate > 60; Glucose Random 106 mg/dL (60-115); Iron 32 mcg/dL (45-160); Percent Iron Saturation 11 % (15-50); Potassium 3.7 mmol/L (3.3-5.1); Sodium 140 mmol/L (135-145); Total Iron Binding Capacity 280 mcg/dL (228-428); Total Protein 7.5 g/dL (6.5-8.0); Unsaturated Iron Binding 248 ug/dL
== END 2023-02-23 11:18 | disposition home or self-care (01) ==
LOC: HO.10HDL 11:17
PROVIDERS: Visit Provider Internal Medicine
DX: E11.9 Type 2 diabetes mellitus without complications (principal); R04.0 Epistaxis
CPT/HCPCS: 36415; 80053; 82043; 82378; 82465; 82570; 83036; 83540; 85025

== ENCOUNTER 2023-07-15 11:20 | Outpatient (REF) | payer OTHER, SELFPAY ==
[2023-07-15 13:13] LABS: MANUAL DIFF FLAG NO
[2023-07-15 13:17] LABS: Basophils Absolute Auto 0.1 X10*3/uL (0.0-0.2); Basophils Percent Auto 0.7 % (0-2); Eosinophils Absolute Auto 0.2 X10*3/uL (0.0-0.4); Eosinophils Percent Auto 3.1 % (0-4); Hematocrit 39.7 % (42.0-52.0); Hemoglobin 13.6 g/dl (14.0-18.0); Imm Gran Abs Auto 0.05 X10*3/uL (0.00-0.03); Imm Gran Pct Auto 0.7 % (0.0-0.4); Lymphocytes Absolute Auto 3.3 X10*3/uL (1.2-4.9); Lymphocytes Percent Auto 43.8 % (20-40); Mean Corpuscular HGB Conc 34.3 g/dl (31.0-36.0); Mean Corpuscular Hemoglobin 27.3 pg (27.0-33.0); Mean Corpuscular Volume 79.6 fL (80.0-98.0); Mean Platelet Volume 10.3 fL (9.4-12.4); Monocytes Absolute Auto 0.5 X10*3/uL (0.1-1.2); Neutrophils Absolute Auto 3.4 x10*3/uL (2.0-8.3); Neutrophils Percent Auto 44.7 % (45-73); Platelet Count 276 X10*3/uL (160-400); Red Blood Count 4.99 X10*6/uL (4.60-5.80); Red Cell Distribution Width 13.6 % (11.0-16.0); White Blood Count 7.5 X10*3/uL (4.8-10.8)
[2023-07-15 13:30] LABS: Alanine Aminotransferase 18 U/L (0-40); Albumin Level 4.4 g/dL (3.5-5.0); Alkaline Phosphatase 87 U/L (39-117); Anion Gap 15 (12-20); Aspartate Amino Transferase 16 U/L (5-37); Bilirubin Total 0.3 mg/dL (0.0-1.0); Blood Urea Nitrogen 12 mg/dL (9-16); C Reactive Protein 0.26 mg/dL (< or = 0.50); Calcium 9.7 mg/dL (8.4-10.2); Carbon Dioxide 25 mmol/L (22-29); Chloride 104 mmol/L (96-108); Estimated Glomerular Filt Rate > 60; Glucose Random 164 mg/dL (60-115); Sodium 140 mmol/L (135-145); Total Protein 7.7 g/dL (6.5-8.0)
[2023-07-15 13:39] LABS: Estimated Average Glucose 143 mg/dL; Hemoglobin A1c % 6.6 % (<6.0)
[2023-07-15 13:47] LABS: Rheumatoid Factor < 13.0 IU/mL (<15.0)
[2023-07-15 14:03] LABS: Erythrocyte Sedimentation Rate 7 MM/HR (0-15)
[2023-07-18 08:18] LABS: Anti Nuclear Antibody Screen NEGATIVE (NEGATIVE)
== END 2023-07-15 11:21 | disposition home or self-care (01) ==
LOC: HO.10HDL 11:20
PROVIDERS: Visit Provider Internal Medicine
DX: M25.50 Pain in unspecified joint (principal); D64.9 Anemia, unspecified; E11.9 Type 2 diabetes mellitus without complications; Z82.61 Family history of arthritis
CPT/HCPCS: 36415; 80053; 82550; 83036; 85025; 85652; 86038; 86140; 86431

== ENCOUNTER 2024-08-29 03:07 | Emergency (ER) | payer OTHER, SELFPAY ==
--- NOTE | ~2024-08-29 | CT_ITS ---
CLINICAL HISTORY: LLQ pain CT abdomen and pelvis with contrast Comparison: CT - CT ABDOMEN PELVIS W IV CON - 08/29/24 04:19 EDT Findings: The lung bases are clear. The liver, gallbladder, spleen, right adrenal gland and pancreas are unremarkable. 8 mm rounded low-density nodule within the left adrenal gland. Kidneys, ureters and bladder are normal. The prostate gland is within normal limits. There is diverticulosis along the colon. No current evidence of diverticulitis. Normal appendix. No bowel obstruction or free air. No acute osseous finding. Impression: No definite acute process. Diverticulosis without evidence of diverticulitis. 8 mm rounded low-density lesion within the left adrenal gland, too small to characterize confidently. This most likely reflects a benign adenoma. This document has been electronically signed by: Deepak Reyes MD on 08/29/2024 06:12:45
[2024-08-29 03:11] VITALS: BP 141/88; PULSE 83; RESP 16; TEMP 36.9; O2SAT 99; BMI 29.9
[2024-08-29 03:50] LABS: Basophils Percent Auto 0.6 % (0-2); Eosinophils Absolute Auto 0.3 X10*3/uL (0.0-0.4); Eosinophils Percent Auto 4.6 % (0-4); Hematocrit 40.9 % (42.0-52.0); Hemoglobin 14.3 g/dl (14.0-18.0); Imm Gran Abs Auto 0.04 X10*3/uL (0.00-0.03); Imm Gran Pct Auto 0.6 % (0.0-0.4); Lymphocytes Absolute Auto 2.9 X10*3/uL (1.2-4.9); Lymphocytes Percent Auto 41.6 % (20-40); MANUAL DIFF FLAG NO; Mean Corpuscular Hemoglobin 26.9 pg (27.0-33.0); Mean Platelet Volume 9.3 fL (9.4-12.4); Monocytes Absolute Auto 0.7 X10*3/uL (0.1-1.2); Monocytes Percent Auto 9.9 % (2-11); Neutrophils Percent Auto 42.7 % (45-73); Platelet Count 277 X10*3/uL (160-400); Red Blood Count 5.31 X10*6/uL (4.60-5.80); Red Cell Distribution Width 13.2 % (11.0-16.0)
[2024-08-29 03:52] LABS: Appearance Urine Clear; Color Urine Yellow; Glucose Urine UA Negative (Negative); Leukocyte Esterase Urine Negative (Negative); Nitrite Urine Negative (Negative); Urine Blood Negative (Negative); Urine Ketones Negative (Negative); Urine Protein Negative (Neg-Trace)
[2024-08-29 04:04] LABS: Alanine Aminotransferase 33 U/L (0-40); Albumin Level 4.8 g/dL (3.5-5.0); Alkaline Phosphatase 83 U/L (39-117); Anion Gap 15 (12-20); Aspartate Amino Transferase 27 U/L (5-37); Bilirubin Total 0.8 mg/dL (0.0-1.0); Blood Urea Nitrogen 11 mg/dL (9-16); Calcium 9.8 mg/dL (8.4-10.2); Carbon Dioxide 24 mmol/L (22-29); Chloride 101 mmol/L (96-108); Estimated Glomerular Filt Rate > 60; Glucose Random 178 mg/dL (60-115); Potassium 3.7 mmol/L (3.3-5.1); Sodium 136 mmol/L (135-145); Total Protein 8.1 g/dL (6.5-8.0)
[2024-08-29 04:04] LABS: Glucose, Whole Blood 169 mg/dL (60-115)
--- NOTE | 2024-08-29 04:10 | ED.ABDPAIN ---
HPI - Abdominal Pain General Chief Complaint: Abdominal Pain Stated Complaint: abd + n/v + not able to urinate + diabetic Time Seen by Provider: 08/29/24 04:05 Source: patient Mode of arrival: ambulatory Limitations: no limitations History of Present Illness ED Provider: Dr. Jennifer Sol HPI narrative: patient comes to the emergency room complaining of 1 week of nausea, left lower quadrant pain, generalized malaise, headache, subjective fever. Patient denies any diarrhea, states that about a week ago he did have loose stools but now resolved. Patient states that he has been drinking a lot of fluids. Patient states that earlier today he could not pass urine or he was not producing enough urine. However, was here up to the emergency room he was able to urinate Related Data Home Medications ?Medication ?Instructions ?Recorded ?Confirmed glipizide 10 mg tablet, extended 10 mg PO BID 07/16/23 07/16/23 release 24 hr Previous Rx's ?Medication ?Instructions ?Recorded acetaminophen 500 mg tablet 500 mg PO Q6H PRN pain or fever 08/26/20 (Tylenol Extra Strength) #20 tabs ibuprofen 800 mg tablet 800 mg PO Q8H PRN pain #14 tabs 08/26/20 amoxicillin 500 mg capsule 500 mg PO Q8H #20 caps 11/04/21 ibuprofen 600 mg tablet 600 mg PO Q6H PRN pain #30 tabs 11/04/21 tramadol 50 mg tablet 50 - 100 mg (1 - 2 x 50 mg) PO Q6H 11/04/21 PRN pain #12 tabs blood-glucose meter #1 ea 01/13/22 metformin 500 mg tablet 500 mg PO BIDWMEAL #60 tabs 01/13/22 amoxicillin 875 mg tablet 875 mg PO Q12H #20 tabs 10/06/22 fluticasone propionate 50 1 spray intranasal DAILY #16 grams 10/06/22 mcg/actuation nasal spray,suspension (Children's Flonase Allergy Relief) hydrocortisone 2.5 % topical cream 1 appl [place] DAILY PRN hemorrhoids 10/06/22 with perineal applicator #30 grams (Anusol-HC) Allergies Allergy/AdvReac Type Severity Reaction Status Date / Time pistachio nut (PISTACHIO) Allergy Unknown UNKNOWN Verified 08/29/24 03:15 oxycodone (OXYCODONE) AdvReac Intermediate NAUSEA/VOMI Verified 08/29/24 03:15 TING Review of Systems Review of Systems Constitutional : No Weight loss, complaining of subjective Fever, No Chills, No Night Sweats complaining of fatigue and generalized malaise ENT/Mouth : No Hearing loss, No Ear Pain, No Nasal Congestion, No Sinus Pain, No Hoarseness, No sore throat, No Rhinorrhea, No Swallowing Difficulty Eyes: No Eye Pain, No Swelling, No Redness, No Foreign Body, No Discharge, No Vision Changes Cardiovascular : No Chest Pain, No SOB, No Dyspnea on Exertion, No Orthopnea, No Edema, No Palpitations Respiratory : No Cough, No Sputum, No Wheezing, No Smoke Exposure, No Dyspnea Gastrointestinal : complaining of nausea, vomiting, resolved loose stools, No Constipation, complaining of left lower quadrant pain, Genitourinary : no irregular bleeding, No Dysuria, No Urinary Frequency, No Hematuria, No Urinary Incontinence, No Urgency, No Flank Pain, No Urinary Flow Changes, No Hesitancy Musculoskeletal : No joint pain, No Myalgias, No Joint Swelling Skin : No Skin Lesions, No rash Neuro : No Weakness, No Numbness, No Paresthesias, No Loss of Consciousness, No Dizziness, No Headache Psych : No Anxiety/Panic, No Depression, No SI/HI/AH/VH, No Social Issues, Heme/Lymph: No Bruising, No Bleeding,No Lymphadenopathy Endocrine : No Polyuria, No Polydipsia, No Temperature Intolerance [facility] Past Medical History Medical History (Updated 08/29/24 @ 06:21 by Jennifer Sol MD) Rectal bleeding Hematochezia Iron deficiency anemia Diarrhea Diabetes mellitus Surgical History (Updated 04/02/23 @ 08:07 by Cherelle Szymanski RN) History of back surgery Social History Social History (Updated 07/16/23 @ 08:53 by Maddison Coronado RN) Household Members: Spouse Housing: Apartment Alcohol intake: current Alcohol intake frequency: holidays/special occasions only Alcohol type: beer Patient Tobacco Use Status: Current everyday Tobacco user Tobacco use type: Cigarette Cigarette Packs Per Day: 1 Cigarettes Per Day: 20.0 Advance Directives: No Advance Directives Information Provided: Yes Current occupational status: employed 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 Oriented X3. No acute distress. well-appearing Eyes: Pupils equal, round and reactive to light. ENT: Pharynx normal. Neck: Normal inspection. Neck supple. No lymph nodes noted. No crepitus CVS: Normal heart rate and rhythm. Pulses normal. Normal S1 and S2 Respiratory: No respiratory distress. Breath sounds normal. No Wheezing. No rales Abdomen: Soft, pain to palpation in the left lower quadrant, no rebound or guarding, No rigidity. No distention. Skin: Skin warm and dry. Normal skin color. Normal skin turgor. Extremities: No lower extremity edema. No Lacerations. No Rash Neuro: Oriented X 3. No motor deficit. No sensory deficit. Moving all extremities. No slurred speech. CN 2 through 12 grossly intact Psych: calm, cooperative, normal affect Course Course Course Narrative: all of patient's labs pending CT scan of the abdomen pending patient well hydrated, this time he does not need any further IV hydration. Patient receiving IV ketorolac for pain control. Medical Decision Making Medical Decision Making [facility] Narrative: my interpretation of labs: Normal hematology, normal chemistry, normal LFTs, urinalysis negative for UTI CT scan of the abdomen does not show any acute abnormality. is likely the patient's symptoms are secondary to a viral illness Differential Diagnosis Differential Diagnoses: The differential diagnosis associated with the presentation includes ( Diverticulitis, SBO, perforation, gastritis, gastroenteritis) Admission/Observation Consideration of admission/observation: Escalation of care including admission/observation considered ( given patient's initial set of complaints, observation was considered) Lab Data [facility] Lab Attestation statement: I reviewed the patient's lab results. 08/29/24 03:46 08/29/24 03:46 Labs: Lab Results 08/29/24 08/29/24 Range/Units 03:46 04:01 WBC 7.0 (4.8-10.8) X10*3/uL RBC 5.31 (4.60-5.80) X10*6/uL Hgb 14.3 (14.0-18.0) g/dl Hct 40.9 L (42.0-52.0) % MCV 77.0 L (80.0-98.0) fL MCH 26.9 L (27.0-33.0) pg MCHC 35.0 (31.0-36.0) g/dl RDW 13.2 (11.0-16.0) % Plt Count 277 (160-400) X10*3/uL MPV 9.3 L (9.4-12.4) fL Immature Gran % (Auto) 0.6 H (0.0-0.4) % Neut % (Auto) 42.7 L (45-73) % Lymph % (Auto) 41.6 H (20-40) % [place] % (Auto) 9.9 (2-11) % Eos % (Auto) 4.6 H (0-4) % Baso % (Auto) 0.6 (0-2) % Lymph # (Auto) 2.9 (1.2-4.9) X10*3/uL [place] # (Auto) 0.7 (0.1-1.2) X10*3/uL Eos # (Auto) 0.3 (0.0-0.4) X10*3/uL Baso # (Auto) 0.0 (0.0-0.2) X10*3/uL Abs Immat Gran (auto) 0.04 H (0.00-0.03) X10*3/uL Absolute Neuts (auto) 3.0 (2.0-8.3) x10*3/uL Absolute Nucleated RBC 0.000 (0.0-0.012) X10*3/uL Nucleated RBC % (auto) 0.0 (0.0-0.2) /100WBC Sodium 136 (135-145) mmol/L Potassium 3.7 (3.3-5.1) mmol/L Chloride 101 (96-108) mmol/L Carbon Dioxide 24 (22-29) mmol/L Anion Gap 15 (12-20) BUN 11 (9-16) mg/dL Creatinine 0.84 (0.5-1.4) mg/dL Estim Creat Clear Calc 99.0 Estimated GFR > 60 POC Glucose 169 H (60-115) mg/dL Random Glucose 178 H (60-115) mg/dL Calcium 9.8 (8.4-10.2) mg/dL Total Bilirubin 0.8 (0.0-1.0) mg/dL AST 27 (5-37) U/L ALT 33 (0-40) U/L Alkaline Phosphatase 83 (39-117) U/L Total Protein 8.1 H (6.5-8.0) g/dL Albumin 4.8 (3.5-5.0) g/dL Lipase 43 (8-78) U/L Urine Color Yellow Urine Appearance Clear Urine pH 6.0 (5.0-9.0) Ur Specific [place] 1.010 (1.005-1.025) Urine Protein Negative (Neg-Trace) mg/dL Urine Glucose (UA) Negative (Negative) mg/dL Urine Ketones Negative (Negative) mg/dL Urine Blood Negative (Negative) Urine Nitrite Negative (Negative) Ur Leukocyte Esterase Negative (Negative) Urine RBC 0-2 (0-2) /HPF Urine WBC 0-5 (0-5) /HPF Ur Squamous Epith Cells 0-2 (0-2) /HPF Urine Bacteria None Seen (None Seen) Hyaline Casts 0-2 (0-2) /LPF Independent Interpretation I performed an independent interpretation of an: CT Scan Radiology Impression Discussion of test interpretation with radiology: I have reviewed the radiologist's reading. Radiologist Impression: The lung bases are clear. The liver, gallbladder, spleen, right adrenal gland and pancreas are unremarkable. 8 mm rounded low-density nodule within the left adrenal gland. Kidneys, ureters and bladder are normal. The prostate gland is within normal limits. There is diverticulosis along the colon. No current evidence of diverticulitis. Normal appendix. No bowel obstruction or free air. No acute osseous finding. Impression: No definite acute process. Diverticulosis without evidence of diverticulitis. 8 mm rounded low-density lesion within the left adrenal gland, too small Medications Administered Discontinued Medications Generic Name Dose Route Start Last Admin Trade Name Freq PRN Reason Stop Dose Admin Iohexol 85 ml 08/29/24 04:27 08/29/24 04:27 Iohexol 350 Mg/Ml 100 Ml Infus..Btl IV 08/29/24 04:28 85 ml ONCE ONE Administration Critical Care Time Critical Care Time Critical Care Time: Yes Total Critical Care Time: 45 Attestation: I have personally provided critical care time. Time includes review of lab data, radiology results, discussion with consultants, and monitoring for potential decompensation. Intervention performed as documented. Discharge Plan Discharge Clinical Impression: Viral illness, Abdominal pain Patient Disposition: Home, Self-Care Additional Instructions: Please follow-up with your primary care physician tomorrow. If you have any worsening or new symptoms, please return to the emergency room or call 911 Prescriptions: No Action ibuprofen 800 mg tablet 800 mg PO Q8H PRN (Reason: pain) Qty: 14 0RF acetaminophen [Tylenol Extra Strength] 500 mg tablet 500 mg PO Q6H PRN (Reason: pain or fever) Qty: 20 0RF amoxicillin 500 mg capsule 500 mg PO Q8H Qty: 20 0RF tramadol 50 mg tablet 50 - 100 mg PO Q6H PRN (Reason: pain) Qty: 12 0RF ibuprofen 600 mg tablet 600 mg PO Q6H PRN (Reason: pain) Qty: 30 0RF metformin 500 mg tablet 500 mg PO BIDWMEAL Qty: 60 0RF (DME) blood-glucose meter Kit See Rx Instructions .Route Qty: 1 0RF Rx Instructions: As directed glipizide 10 mg tablet extended release 24hr 10 mg PO BID amoxicillin 875 mg tablet 875 mg PO Q12H Qty: 20 0RF fluticasone propionate [Children's Flonase Allergy Rlf] 50 mcg/actuation spray,suspension 1 spray intranasal DAILY Qty: 16 0RF Rx Instructions: administer into each nostril hydrocortisone [Anusol-HC] 2.5 % cream with perineal applicator 1 appl [place] DAILY PRN (Reason: hemorrhoids) Qty: 30 0RF Print Language: [place]
[2024-08-29 04:20] LABS: Lipase 43 U/L (8-78)
[2024-08-29] MEDS: iohexoL 350 MG/ML 100 ML INFUS..BTL 85 ML IV (04:27)
[2024-08-29 04:28] LABS: Bacteria Urine None Seen (None Seen); Hyaline Casts Urine 0-2 /LPF (0-2); RBC Urine 0-2 /HPF (0-2); Squamous Epithelial Cell Urine 0-2 /HPF (0-2); WBC Urine 0-5 /HPF (0-5)
[2024-08-29] MEDS: Ketorolac Tromethamine 30 MG/ML VIAL IVPUSH (06:29)
[2024-08-29 06:30] VITALS: BP 122/74; PULSE 82; RESP 16; TEMP 36.6; O2SAT 97
== END 2024-08-29 06:30 | disposition home or self-care (01) ==
PROVIDERS: Emergency Provider Emergency Medicine
DX: B34.9 Viral infection, unspecified (principal); R10.32 Left lower quadrant pain; E11.9 Type 2 diabetes mellitus without complications; D50.9 Iron deficiency anemia, unspecified; F17.210 Nicotine dependence, cigarettes, uncomplicated; Z79.84 Long term (current) use of oral hypoglycemic drugs; Z79.899 Other long term (current) drug therapy
CPT/HCPCS: 36415; 74177; 80053; 81001; 82947; 83690; 85025; 96374; 99284; 99285; 99291; J1885; Q9967

== ENCOUNTER → 2024-08-29 04:09 | Outpatient (BNV) | payer OTHER, SELFPAY | PROVIDERS: Emergency Provider Emergency Medicine; Visit Provider Radiology Vascular & Interventional Radiology | DX: R10.32 Left lower quadrant pain (principal) | CPT/HCPCS: 74177 ==